=== PATIENT | female | born 1930 | race Caucasian/White ===

== ENCOUNTER 2018-09-15 01:20 | Observation (INO) | payer MEDICARE ==
[~2018-09-15] VITALS: Ht 160 cm; Wt 80.0 kg
[~2018-09-15 01:20] MED LIST: ASPI81EC PO; ATEN25 PO; Aspirin EC81 MG PO; CALC1.25T PO; CALCIUM CARBONATE PO; CARV6.25 PO; CLOP75 PO; CODACE30 PO; CYAN1000I IM; DOCU100 PO; FISH1000 PO; FLUN25SP; FLUO10 PO; FLUO20 PO; FLUT.05NI; GUAI600ER PO; INS70/30I SC; Isosorbide Mono60 MG PO; LEVSOD50 PO; LISI10 PO; LISI5 PO; LORA10ER PO; Lasix20 MG PO; MECL12.5 PO; METO50ER PO; MORP15ER PO; MORP30 PO; MORP30ER PO; MULVITA PO; Morphine Sulfat30 M1 PO; NAPR250 PO; NITR.4SL SL; OLOP.1OPSO OD; OMEP20ER PO; PANT40 PO; RXNITR.4 SL; SENN187 PO; SIMV5 PO; TOCO400 PO; TRAZ50 PO; VIT D3 PO; VITAMIN D3400 UNIT PO
[2018-09-15] MEDS ORDERED: ALLO300 PO (01:28)
[2018-09-15] MEDS ORDERED: CETI5 PO (01:30)
[2018-09-15] MEDS ORDERED: Capsaicin60 GM TOP (01:30)
[2018-09-15] MEDS ORDERED: Flonase 0.05% N16 GM (01:34)
[2018-09-15] MEDS ORDERED: GABA300 PO (01:37)
[2018-09-15] MEDS ORDERED: GUAI200 PO (01:38)
[2018-09-15] MEDS ORDERED: NOVOLIN 70100 UNIT/2 SC (01:40)
[2018-09-15] MEDS ORDERED: Hair, Skin & N1 EACH PO (01:46)
[2018-09-15] MEDS ORDERED: NITR.4SL SL (01:46)
[2018-09-15] MEDS ORDERED: ONDA4ODT MM (01:48)
[2018-09-15] MEDS ORDERED: PANT20 PO (01:48)
[2018-09-15] MEDS ORDERED: TRAZ50 PO (01:49)
[2018-09-15] MEDS ORDERED: Ropinirole HCl0.5 MG PO (01:49)
[2018-09-15] MEDS ORDERED: VALSARTAN40 MG PO (01:50)
[2018-09-15] MEDS ORDERED: Percocet 5-3251 EACH PO (01:51)
[2018-09-15 01:55] LABS: BASOPHILS ABSOLUTE AUTO 0.04 K/mm3 (0.00-0.23); BASOPHILS PERCENT AUTO 1 % (0-2); EOSINOPHILS ABSOLUTE AUTO 0.34 K/mm3 (0.00-0.68); EOSINOPHILS PERCENT AUTO 4 % (0-6); Hematocrit 38.9 % (33.0-51.0); Hemoglobin 12.5 g/dL (11.5-16.0); IMMATURE GRAN ABSOLUTE AUTO 0.01 K/mm3 (0.00-0.10); IMMATURE GRAN PERCENT AUTO 0 % (0-1); LYMPHOCYTES ABSOLUTE AUTO 2.92 K/mm3 (0.84-5.20); LYMPHOCYTES PERCENT AUTO 37 % (21-46); MONOCYTES ABSOLUTE AUTO 0.67 K/mm3 (0.16-1.47); MONOCYTES PERCENT AUTO 9 % (4-13); Mean Corpuscular HGB 32.1 pg (26.0-34.0); Mean Corpuscular HGB Conc 32.1 g/dL (31.5-36.5); Mean Corpuscular Volume 100 fL (80-100); NEUTROPHILS ABSOLUTE AUTO 3.92 K/mm3 (1.96-9.15); NEUTROPHILS PERCENT AUTO 50 % (41-73); Platelet Count 162 K/mm3 (150-400); RDW Coefficient Variation 13.5 % (11.7-14.2)
[2018-09-15 02:16] LABS: Alanine Aminotransfer (ALT/SGP 21 U/L (12-78); Albumin, Blood 3.3 g/dL (3.4-5.0); Alk Phos 79 U/L (50-136); Anion Gap 8 mmol/L (6-16); Aspartate Aminotrans (AST/SGOT 15 U/L (12-37); Blood Urea Nitrogen 53 mg/dL (8-24); Bun/Creatinine Ratio 24.7 (12.0-20.0); CO2, Blood 23 mmol/L (21-32); Chloride, Blood 106 mmol/L (98-108); Creatinine, Blood 2.15 mg/dL (0.40-1.00); Globulin, Blood 3.3 g/dL (2.2-4.0); Glomerular Filtration Rate 23 (60-); Glucose, Blood 160 mg/dL (70-99); Potassium, Blood 4.8 mmol/L (3.5-5.5); Sodium, Blood 137 mmol/L (136-145); Total Protein, Blood 6.6 g/dL (6.4-8.2); Troponin I <0.015 ng/mL (0.000-0.040)
[2018-09-15 02:27] LABS: Source, Urine Clean Catch
[2018-09-15 02:42] LABS: Bilirubin, Urine Neg (Neg); Blood, Urine Neg (Neg); Glucose Qualitative, Urine Neg (Neg); Ketones, Urine Neg (Neg); Leukocyte Esterase, Urine 1+ (Neg); Nitrite, Urine Neg (Neg); Protein, Urine Neg (Neg); Specific Gravity, Urine 1.015 (1.003-1.022); Urobilinogen, Urine NORM (Normal)
[2018-09-15 02:44] LABS: Appearance, Urine Clear (Clear); Color, Urine Yellow (P-Yellow)
[2018-09-15 02:48] LABS: Amorphous Light (0-Heavy); Bacteria Few /hpf; Red Blood Cells, Urine 0-2 /hpf (0-2); Squamous Epithelial Cells Rare /hpf (Few); White Blood Cells, Urine 0-2 /hpf (0-5)
--- NOTE | 2018-09-15 05:27 | NUR ---
ASSUMED CARE/SHIFT SUMMARY REPORT TAKEN FROM ED RN VANESSA. PT TO UNIT ON STRETCHER AND WAS ABLE TO STAND AND TRANSFER SELF TO HOSP BED. PT HAS BRIGHT AFFECT AND ANSWERS QUESTIONS APPRORIATELY. RESP EVEN UNLBAORED ON RA W/ SATS >92%. DENIES PAIN. DENIES SOB. PT REPORTS FEELS WEAK AND "NOT HERSELF". HR LOW AND MONITORED VIA TELE. PT REPORTS HAS BEEN LOW FOR "ABOUT A WEEK". DENIES CP. PT USES 4WW AT BASLINE. NS INFUSING IN PIV AT 75ML/HR. CALL LIGHT IS IN REACH.
[2018-09-15 10:22] LABS: Hematocrit 39.1 % (33.0-51.0); Hemoglobin 12.2 g/dL (11.5-16.0); Mean Corpuscular HGB 31.3 pg (26.0-34.0); Mean Corpuscular HGB Conc 31.2 g/dL (31.5-36.5); Mean Corpuscular Volume 100 fL (80-100); Mean Platelet Volume 9.8 fL (9.1-12.4); Platelet Count 143 K/mm3 (150-400); RDW Coefficient Variation 13.8 % (11.7-14.2); RDW Standard Deviation 50.4 fL (35.1-46.3); White Blood Cell Count 7.56 K/mm3 (4.00-11.30)
[2018-09-15 10:40] LABS: Albumin, Blood 3.2 g/dL (3.4-5.0); Bilirubin, Total 0.9 mg/dL (0.1-1.0); Bun/Creatinine Ratio 26.3 (12.0-20.0); Calcium, Blood 7.9 mg/dL (8.5-10.1); Creatinine, Blood 1.94 mg/dL (0.40-1.00); Globulin, Blood 3.2 g/dL (2.2-4.0); Potassium, Blood 5.1 mmol/L (3.5-5.5); Total Protein, Blood 6.4 g/dL (6.4-8.2)
[2018-09-15 10:41] LABS: CPK Creatine Kinase 35 U/L (26-193); Troponin I <0.015 ng/mL (0.000-0.040)
--- NOTE | 2018-09-15 11:29 | NUR ---
Echocardiogram completed.
--- NOTE | 2018-09-15 14:34 | NUR ---
PT REPORTING ACHING PAIN IN LOWER BACK 10/10, REQUESTING PAIN MEDICATIONS. GOT PT UP IN RECLINER, PT STATES PAIN NOT RELEIVED BY REPOSITIONING AND RESTING. NOTIFIED DR DEVLIN, NEW ORDERS ENTERED. HEATING PAD AND TYLENOL ADMINISTERED. WILL CONTINUE TO MONITOR.
--- NOTE | 2018-09-15 15:19 | NUR ---
THIS RN TO ROOM TO DO A PAIN REASSESSMENT, PT REPORTS CHEST PRESSURE, 8/10 IN CENTER OF CHEST. VSS. NOTIFIED DR DEVLIN, NEW ORDER FOR EKG, AND HE WILL BE UP TO REVEIW. WILL CONTINUE TO MONITOR.
--- NOTE | 2018-09-15 17:19 | NUR ---
ZOSYN AND SOLUMEDROL SCANNED AND GIVEN AT 1639. UNABLE TO SUBMIT AND SAVE DUE TO COMPUTER ISSUES. WILL MANUALLY ENTER ONCE THESE ARE NOT LOCKED OUT.
--- NOTE | 2018-09-15 17:21 | NUR ---
SHIFT SUMMARY PT A&Ox4. CALM AND COOPERATIVE WITH CARE. PT RESTING IN BED DURING SHIFT. UP TO BSC WITH SBA. PT DENIES SOB, SPO2 >92% ON RA T/O SHIFT, LS DIM IN BASES. PT STATES SHE STARTED HAVING A DRY COUGH THIS AFTERNOON, RESASSESSED LS NO CHANGES NOTED. PT REPORTS LOWER BACK PAIN AND EPIHASTRIC/CHEST PAIN, MEDICATED PER EMAR AND GOT PT UP TO CHAIR AND APPLIED HEAT. PT DENIES NAUSEA, POOR APPETITE. PT HR THIS AM AT 28-38, PT NOW MID 30'S TO 40'S. EKG COMPLETED DURING SHIFT. VSS. PT CONTINUES TO DENIES DIZZINESS BUT STATES THAT SHE IS WEAK. NO OTHER ACUTE CHANGES NOTED DURING SHIFT. WILL CONTINUE TO MONITOR UNTIL REPORT GIVEN TO ONCOMING RN.
[2018-09-15 18:18] LABS: CPK Creatine Kinase 37 U/L (26-193); Troponin I <0.015 ng/mL (0.000-0.040)
--- NOTE | 2018-09-16 05:14 | NUR ---
shift summary pt resting in room comfortably at this time. no acute changes in status t/o night. pt did not sleep, reports "I can't sleep without my oxycodone". pt educated as to reasoning of no narcotics being ordered d/t low hr. pt reports understanding, asks for something to sleep for tonight if she stays another day. resp even unlabored on ra while awake, w/ sats >92%. pt uses 2L nc while sleeping at baseline. egg crate provided for pt comfort and k pad applied to back for chronic pain. pt medicated w/ tylenol for pain as well. denies other needs. pt hr remains avg of 40's at rest with jumps to 60's and 70's upon amb to rr. call light in reach.
[2018-09-16 08:30] LABS: Bun/Creatinine Ratio 30.8 (12.0-20.0); Calcium, Blood 8.4 mg/dL (8.5-10.1); Creatinine, Blood 1.3 mg/dL (0.40-1.00); Potassium, Blood 4.8 mmol/L (3.5-5.5)
--- NOTE | 2018-09-16 15:58 | NUR ---
TRANSFER NOTE REPORT GIVEN TO SAMANTHA ALONSO ON MEDICAL UNIT. PT TRANSFERED TO ROOM 338. PT A&Ox4, FORGETFUL AT TIMES. PT UP IN ROOM IND. PT DENIES SOB, CHEST PAIN, DIZZINESS/LIGHTHEADEDNESS, AND NAUSEA T/O SHIFT. TELE AFIB IN 50'S. PT REPORTS KNEE AND LOWER BACK PAIN. PT WEARS 2L O2 VIA NC WHEN ASLEEP, SPO2 >90% T/O SHIFT. VSS. NO OTHER ACUTE CHANGES NOTED DURING SHIFT.
--- NOTE | 2018-09-16 18:09 | NUR ---
SHIFT SUMMARY: PATIENT TRANSFER FROM [facility] THIS SHIFT. PT A&O; OCC FORGETFUL. NO C/O PAIN SINCE ARRIVAL ON MEDICAL. TELE IN PLACE; A-FIB @ 48-53 AFTER ARRIVAL ON MEDICAL (1623). PT USES O2 @ 2L @ NOC. PT UP c SBA. EXPECTED D/C TO HOME TOMORROW (09/17). WCTM.
--- NOTE | 2018-09-17 04:06 | NUR ---
SHIFT SUMMARY- PT. A&O, UP AND AMBULATING IN THE ROOM AND HALLS WITH SBA. C/O OCCASIONAL DRY COUGH SINCE ADMISSION. LS CLEAR, ON 2L OF 02 AT BEDTIME BUT DURING THE DAY ON RA. PT. ALSO C/O LEG PAIN, STATES IS DUE TO RESTLESS LEG. CALLED PROVIDER TO OBTAIN ORDER FOR PRN PAIN MED. ADMINISTERED OXYCODONE PER EMAR, PT. TOLERATED WELL. ASLEEP THE REST OF THE NIGHT, NO APPARENT DISTRESS NOTED. CALL LIGHT WIHTIN REACH AND SIDE RAILS UP X2. WILL CONT TO MONITOR.
[2018-09-17] MEDS ORDERED: CIPR500 PO (16:09)
--- NOTE | 2018-09-17 16:30 | NUR ---
SUMMARY/DISCHARGE PT DISCHARGED TO HOME WITH HER DAUGHTER, PT VERBALIZED UNDERSTANDING OF DISCHARGE INSTRUCTIONS REGARDING MEDS AND FOLLOW UP, WAITING FOR HER RIDE AT THIS TIME
--- NOTE | 2018-09-17 16:46 | NUR ---
SUMMARY PT TAKEN OUT SAFELY VIA WHEELCHAIR
== END 2018-09-17 16:57 | disposition home or self-care (01) ==
LOC: ER 01:20 → PCU 01:21 → MEDS 09-16 15:29
PROVIDERS: Emergency Medicine; Hospitalist; ADMIT Internal Medicine
DX: N17.9 Acute kidney failure, unspecified (principal); N39.0 Urinary tract infection, site not specified; I48.91 Unspecified atrial fibrillation; E11.9 Type 2 diabetes mellitus without complications; G25.81 Restless legs syndrome; I10 Essential (primary) hypertension; M10.9 Gout, unspecified; J96.11 Chronic respiratory failure with hypoxia; I25.10 Atherosclerotic heart disease of native coronary artery without angina pectoris; Z95.1 Presence of aortocoronary bypass graft; Z79.899 Other long term (current) drug therapy; Z79.82 Long term (current) use of aspirin; Z88.2 Allergy status to sulfonamides; Z88.5 Allergy status to narcotic agent; Z88.8 Allergy status to other drugs, medicaments and biological substances
CPT/HCPCS: 36415; 51701; 71045; 80048; 80053; 81001; 82550; 82947; 83690; 83880; 84443; 84484; 85025; 85027; 87077; 87086; 87186; 93005; 93010; 93306; 96361-59; 96372; 96374-59; 96375; 99285-25; A9270; C9113; G0378; J0461; J1650; J1815; J2405; J7030

== ENCOUNTER 2018-09-19 11:29 | Inpatient (IN) | payer MEDICARE ==
[~2018-09-19] VITALS: Ht 157.5 cm; Wt 82.0 kg
[~2018-09-19 11:29] MED LIST changes: +ALLO300 PO; +CETI5 PO; +CIPR500 PO; +Capsaicin60 GM TOP; +Flonase 0.05% N16 GM; +GABA300 PO; +GUAI200 PO; +Hair, Skin & N1 EACH PO; +NOVOLIN 70100 UNIT/2 SC; +ONDA4ODT MM; +PANT20 PO; +Percocet 5-3251 EACH PO; +Ropinirole HCl0.5 MG PO; +VALSARTAN40 MG PO
[2018-09-19 12:16] LABS: BASOPHILS ABSOLUTE AUTO 0.02 K/mm3 (0.00-0.23); BASOPHILS PERCENT AUTO 0 % (0-2); EOSINOPHILS ABSOLUTE AUTO 0.14 K/mm3 (0.00-0.68); EOSINOPHILS PERCENT AUTO 1 % (0-6); Hematocrit 35.4 % (33.0-51.0); IMMATURE GRAN ABSOLUTE AUTO 0.04 K/mm3 (0.00-0.10); IMMATURE GRAN PERCENT AUTO 0 % (0-1); LYMPHOCYTES ABSOLUTE AUTO 1.49 K/mm3 (0.84-5.20); LYMPHOCYTES PERCENT AUTO 14 % (21-46); MONOCYTES ABSOLUTE AUTO 0.73 K/mm3 (0.16-1.47); MONOCYTES PERCENT AUTO 7 % (4-13); Mean Corpuscular HGB 31.2 pg (26.0-34.0); Mean Corpuscular HGB Conc 31.1 g/dL (31.5-36.5); Mean Corpuscular Volume 100 fL (80-100); Mean Platelet Volume 10.3 fL (9.1-12.4); NEUTROPHILS PERCENT AUTO 77 % (41-73); Platelet Count 160 K/mm3 (150-400); RDW Coefficient Variation 14.1 % (11.7-14.2); RDW Standard Deviation 51.6 fL (35.1-46.3); Red Blood Cell Count 3.53 M/mm3 (3.80-5.20); White Blood Cell Count 10.52 K/mm3 (4.00-11.30)
[2018-09-19 12:47] LABS: Bun/Creatinine Ratio 11.5 (12.0-20.0); Creatinine, Blood 3.23 mg/dL (0.40-1.00); Potassium, Blood 4.8 mmol/L (3.5-5.5)
[2018-09-19 12:58] LABS: Troponin I 0.845 ng/mL (0.000-0.040)
[2018-09-19] MEDS ORDERED: Vitamin B Comple1 EA PO (14:02)
[2018-09-19] MEDS ORDERED: ACET500 PO (15:17)
[2018-09-19] MEDS ORDERED: ALBU90OI INH (15:18)
[2018-09-19] MEDS ORDERED: [UNRECOGNIZED DRUG - OTHER] TOP (15:19)
[2018-09-19] MEDS ORDERED: DOCU100 PO (15:20)
[2018-09-19] MEDS ORDERED: CETI5 PO (15:20)
[2018-09-19] MEDS ORDERED: DICLOFENAC SOD100 G1 TOP (15:21)
[2018-09-19] MEDS ORDERED: Ipratropium Bro30 ML (15:22)
[2018-09-19] MEDS ORDERED: ALLERGY EYE DRO10 M1 BOTHEYES (15:22)
[2018-09-19] MEDS ORDERED: LIDO700A20 TOP (15:23)
[2018-09-19] MEDS ORDERED: MIRALAX17 GM PO (15:24)
[2018-09-19] MEDS ORDERED: SARNA ANTI-ITC222 ML TOP (15:29)
[2018-09-19 17:10] LABS: Bun/Creatinine Ratio 11.2 (12.0-20.0); Calcium, Blood 8.2 mg/dL (8.5-10.1); Creatinine, Blood 3.47 mg/dL (0.40-1.00); Potassium, Blood 4.8 mmol/L (3.5-5.5)
[2018-09-19 20:45] LABS: Source, Urine Clean Catch
[2018-09-19 20:54] LABS: Blood, Urine 3+ (Neg); Glucose Qualitative, Urine Neg (Neg); Ketones, Urine Neg (Neg); Leukocyte Esterase, Urine 3+ (Neg); Nitrite, Urine Neg (Neg); Protein, Urine 2+ (Neg); Urobilinogen, Urine 2+ (Normal)
[2018-09-19 21:11] LABS: Appearance, Urine Cloudy (Clear); Bilirubin, Urine 2+ (Neg); Color, Urine Amber (P-Yellow)
[2018-09-19 21:12] LABS: Bacteria Many /hpf; Squamous Epithelial Cells Mod /hpf (Few); White Blood Cells, Urine TNTC /hpf (0-5)
[2018-09-20 05:16] LABS: BASOPHILS ABSOLUTE AUTO 0.04 K/mm3 (0.00-0.23); BASOPHILS PERCENT AUTO 0 % (0-2); EOSINOPHILS PERCENT AUTO 4 % (0-6); Hematocrit 34.2 % (33.0-51.0); Hemoglobin 10.6 g/dL (11.5-16.0); IMMATURE GRAN ABSOLUTE AUTO 0.02 K/mm3 (0.00-0.10); IMMATURE GRAN PERCENT AUTO 0 % (0-1); LYMPHOCYTES PERCENT AUTO 22 % (21-46); MONOCYTES ABSOLUTE AUTO 0.62 K/mm3 (0.16-1.47); MONOCYTES PERCENT AUTO 7 % (4-13); Mean Corpuscular HGB 31.2 pg (26.0-34.0); Mean Corpuscular Volume 101 fL (80-100); Mean Platelet Volume 9.6 fL (9.1-12.4); NEUTROPHILS ABSOLUTE AUTO 5.91 K/mm3 (1.96-9.15); NEUTROPHILS PERCENT AUTO 66 % (41-73); Platelet Count 151 K/mm3 (150-400); RDW Coefficient Variation 13.9 % (11.7-14.2); RDW Standard Deviation 51.5 fL (35.1-46.3); White Blood Cell Count 8.99 K/mm3 (4.00-11.30)
[2018-09-20 05:44] LABS: Bun/Creatinine Ratio 12.3 (12.0-20.0); Calcium, Blood 7.5 mg/dL (8.5-10.1); Creatinine, Blood 3.08 mg/dL (0.40-1.00)
[2018-09-20 16:22] LABS: Bun/Creatinine Ratio 13.6 (12.0-20.0); Calcium, Blood 7.9 mg/dL (8.5-10.1); Creatinine, Blood 2.87 mg/dL (0.40-1.00); Potassium, Blood 4.3 mmol/L (3.5-5.5)
[2018-09-22 05:26] LABS: BASOPHILS ABSOLUTE AUTO 0.04 K/mm3 (0.00-0.23); BASOPHILS PERCENT AUTO 1 % (0-2); EOSINOPHILS ABSOLUTE AUTO 0.32 K/mm3 (0.00-0.68); EOSINOPHILS PERCENT AUTO 5 % (0-6); Hematocrit 34.8 % (33.0-51.0); Hemoglobin 10.5 g/dL (11.5-16.0); IMMATURE GRAN ABSOLUTE AUTO 0.01 K/mm3 (0.00-0.10); IMMATURE GRAN PERCENT AUTO 0 % (0-1); LYMPHOCYTES ABSOLUTE AUTO 1.27 K/mm3 (0.84-5.20); LYMPHOCYTES PERCENT AUTO 20 % (21-46); MONOCYTES ABSOLUTE AUTO 0.51 K/mm3 (0.16-1.47); MONOCYTES PERCENT AUTO 8 % (4-13); Mean Corpuscular HGB 30.9 pg (26.0-34.0); Mean Corpuscular HGB Conc 30.2 g/dL (31.5-36.5); Mean Corpuscular Volume 102 fL (80-100); Mean Platelet Volume 9.5 fL (9.1-12.4); NEUTROPHILS PERCENT AUTO 66 % (41-73); Platelet Count 166 K/mm3 (150-400); RDW Coefficient Variation 13.8 % (11.7-14.2); RDW Standard Deviation 51.8 fL (35.1-46.3); White Blood Cell Count 6.25 K/mm3 (4.00-11.30)
[2018-09-22 05:26] LABS: Eosinophils-Raw #,Urine 0
[2018-09-22 05:32] LABS: White Blood Cells Urine 0-2 /hpf (0-5)
[2018-09-22 05:37] LABS: Creatinine, Urine Random 42.4 mg/dL (27.00-270.00)
[2018-09-22 05:39] LABS: Microalb/Creat Ratio UR, Rand 27.358 mg/g (0.000-30.000); Microalbumin, Random Urine 11.6 mg/L (0.000-20.000)
[2018-09-22 06:03] LABS: Magnesium, Blood 1.9 mg/dL (1.6-2.4)
[2018-09-22 06:04] LABS: Albumin, Blood 2.8 g/dL (3.4-5.0); Albumin/Globulin Ratio 0.9 (0.8-1.8); Bilirubin, Total 0.6 mg/dL (0.1-1.0); Bun/Creatinine Ratio 18.5 (12.0-20.0); Calcium, Blood 7.9 mg/dL (8.5-10.1); Creatinine, Blood 1.78 mg/dL (0.40-1.00); Globulin, Blood 3.1 g/dL (2.2-4.0); Potassium, Blood 4.5 mmol/L (3.5-5.5); Total Protein, Blood 5.9 g/dL (6.4-8.2)
[2018-09-23 05:22] LABS: BASOPHILS ABSOLUTE AUTO 0.03 K/mm3 (0.00-0.23); BASOPHILS PERCENT AUTO 1 % (0-2); EOSINOPHILS ABSOLUTE AUTO 0.38 K/mm3 (0.00-0.68); EOSINOPHILS PERCENT AUTO 7 % (0-6); Hemoglobin 10.6 g/dL (11.5-16.0); IMMATURE GRAN ABSOLUTE AUTO 0.01 K/mm3 (0.00-0.10); IMMATURE GRAN PERCENT AUTO 0 % (0-1); LYMPHOCYTES ABSOLUTE AUTO 1.64 K/mm3 (0.84-5.20); LYMPHOCYTES PERCENT AUTO 28 % (21-46); MONOCYTES ABSOLUTE AUTO 0.49 K/mm3 (0.16-1.47); MONOCYTES PERCENT AUTO 8 % (4-13); Mean Corpuscular HGB 31.9 pg (26.0-34.0); Mean Corpuscular HGB Conc 32.1 g/dL (31.5-36.5); Mean Platelet Volume 9.5 fL (9.1-12.4); NEUTROPHILS ABSOLUTE AUTO 3.25 K/mm3 (1.96-9.15); NEUTROPHILS PERCENT AUTO 56 % (41-73); Platelet Count 186 K/mm3 (150-400); RDW Coefficient Variation 13.7 % (11.7-14.2); RDW Standard Deviation 50.1 fL (35.1-46.3); Red Blood Cell Count 3.32 M/mm3 (3.80-5.20)
[2018-09-23 05:38] LABS: Albumin, Blood 2.8 g/dL (3.4-5.0); Anion Gap 7 mmol/L (6-16); Blood Urea Nitrogen 26 mg/dL (8-24); Bun/Creatinine Ratio 23.2 (12.0-20.0); CO2, Blood 23 mmol/L (21-32); Calcium, Blood 8.1 mg/dL (8.5-10.1); Chloride, Blood 111 mmol/L (98-108); Creatinine, Blood 1.12 mg/dL (0.40-1.00); Glomerular Filtration Rate 49 (60-); Glucose, Blood 113 mg/dL (70-99); Phosphorus, Blood 2.7 mg/dL (2.5-4.9); Potassium, Blood 4.4 mmol/L (3.5-5.5); Sodium, Blood 141 mmol/L (136-145)
[2018-09-23 05:41] LABS: Mean Corpuscular Volume 99 fL (80-100)
[2018-09-24 05:40] LABS: BASOPHILS ABSOLUTE AUTO 0.03 K/mm3 (0.00-0.23); BASOPHILS PERCENT AUTO 0 % (0-2); EOSINOPHILS ABSOLUTE AUTO 0.45 K/mm3 (0.00-0.68); EOSINOPHILS PERCENT AUTO 6 % (0-6); Hematocrit 36.2 % (33.0-51.0); Hemoglobin 11.2 g/dL (11.5-16.0); IMMATURE GRAN ABSOLUTE AUTO 0.01 K/mm3 (0.00-0.10); IMMATURE GRAN PERCENT AUTO 0 % (0-1); LYMPHOCYTES ABSOLUTE AUTO 1.92 K/mm3 (0.84-5.20); LYMPHOCYTES PERCENT AUTO 25 % (21-46); MONOCYTES ABSOLUTE AUTO 0.58 K/mm3 (0.16-1.47); MONOCYTES PERCENT AUTO 8 % (4-13); Mean Corpuscular HGB 31.3 pg (26.0-34.0); Mean Corpuscular HGB Conc 30.9 g/dL (31.5-36.5); Mean Corpuscular Volume 101 fL (80-100); Mean Platelet Volume 9.6 fL (9.1-12.4); NEUTROPHILS ABSOLUTE AUTO 4.56 K/mm3 (1.96-9.15); NEUTROPHILS PERCENT AUTO 60 % (41-73); Platelet Count 208 K/mm3 (150-400); RDW Coefficient Variation 13.9 % (11.7-14.2); RDW Standard Deviation 51.6 fL (35.1-46.3); Red Blood Cell Count 3.58 M/mm3 (3.80-5.20); White Blood Cell Count 7.55 K/mm3 (4.00-11.30)
[2018-09-24 05:59] LABS: Albumin, Blood 3.1 g/dL (3.4-5.0); Anion Gap 6 mmol/L (6-16); Blood Urea Nitrogen 19 mg/dL (8-24); Bun/Creatinine Ratio 18.8 (12.0-20.0); CO2, Blood 26 mmol/L (21-32); Calcium, Blood 8.5 mg/dL (8.5-10.1); Chloride, Blood 108 mmol/L (98-108); Creatinine, Blood 1.01 mg/dL (0.40-1.00); Glomerular Filtration Rate 55 (60-); Glucose, Blood 116 mg/dL (70-99); Phosphorus, Blood 3.1 mg/dL (2.5-4.9); Potassium, Blood 4.5 mmol/L (3.5-5.5); Sodium, Blood 140 mmol/L (136-145)
[2018-09-25 05:34] LABS: Albumin, Blood 2.8 g/dL (3.4-5.0); Anion Gap 7 mmol/L (6-16); Blood Urea Nitrogen 15 mg/dL (8-24); CO2, Blood 25 mmol/L (21-32); Calcium, Blood 8.2 mg/dL (8.5-10.1); Chloride, Blood 109 mmol/L (98-108); Creatinine, Blood 0.88 mg/dL (0.40-1.00); Glomerular Filtration Rate >60 (60-); Glucose, Blood 121 mg/dL (70-99); Phosphorus, Blood 2.9 mg/dL (2.5-4.9); Potassium, Blood 4.7 mmol/L (3.5-5.5); Sodium, Blood 141 mmol/L (136-145)
[2018-09-26 05:37] LABS: Hemoglobin 10.8 g/dL (11.5-16.0); Mean Corpuscular HGB 31.7 pg (26.0-34.0); Mean Corpuscular HGB Conc 31.8 g/dL (31.5-36.5); Mean Corpuscular Volume 100 fL (80-100); Mean Platelet Volume 9.5 fL (9.1-12.4); Platelet Count 209 K/mm3 (150-400); RDW Coefficient Variation 13.8 % (11.7-14.2); RDW Standard Deviation 49.9 fL (35.1-46.3); Red Blood Cell Count 3.41 M/mm3 (3.80-5.20); White Blood Cell Count 6.67 K/mm3 (4.00-11.30)
[2018-09-26 06:04] LABS: Anion Gap 5 mmol/L (6-16); Blood Urea Nitrogen 12 mg/dL (8-24); Bun/Creatinine Ratio 13.3 (12.0-20.0); CO2, Blood 29 mmol/L (21-32); Calcium, Blood 8.5 mg/dL (8.5-10.1); Chloride, Blood 105 mmol/L (98-108); Glomerular Filtration Rate >60 (60-); Glucose, Blood 133 mg/dL (70-99); Magnesium, Blood 1.7 mg/dL (1.6-2.4); Phosphorus, Blood 3.4 mg/dL (2.5-4.9); Potassium, Blood 4.6 mmol/L (3.5-5.5); Sodium, Blood 139 mmol/L (136-145)
[2018-09-27 05:24] LABS: Hemoglobin 10.2 g/dL (11.5-16.0)
[2018-09-27 05:39] LABS: Albumin, Blood 2.8 g/dL (3.4-5.0); Anion Gap 6 mmol/L (6-16); Blood Urea Nitrogen 13 mg/dL (8-24); Bun/Creatinine Ratio 14.2 (12.0-20.0); CO2, Blood 29 mmol/L (21-32); Calcium, Blood 8.2 mg/dL (8.5-10.1); Chloride, Blood 104 mmol/L (98-108); Creatinine, Blood 0.91 mg/dL (0.40-1.00); Glomerular Filtration Rate >60 (60-); Glucose, Blood 131 mg/dL (70-99); Magnesium, Blood 1.6 mg/dL (1.6-2.4); Phosphorus, Blood 3.5 mg/dL (2.5-4.9); Potassium, Blood 4.6 mmol/L (3.5-5.5); Sodium, Blood 139 mmol/L (136-145)
[2018-09-28 05:25] LABS: Hematocrit 34.1 % (33.0-51.0); Hemoglobin 10.7 g/dL (11.5-16.0)
[2018-09-28 05:45] LABS: Albumin, Blood 2.8 g/dL (3.4-5.0); Anion Gap 6 mmol/L (6-16); Blood Urea Nitrogen 14 mg/dL (8-24); Bun/Creatinine Ratio 15.6 (12.0-20.0); CO2, Blood 30 mmol/L (21-32); Calcium, Blood 8.4 mg/dL (8.5-10.1); Chloride, Blood 103 mmol/L (98-108); Glomerular Filtration Rate >60 (60-); Glucose, Blood 121 mg/dL (70-99); Magnesium, Blood 1.6 mg/dL (1.6-2.4); Phosphorus, Blood 3.6 mg/dL (2.5-4.9); Potassium, Blood 4.4 mmol/L (3.5-5.5); Sodium, Blood 139 mmol/L (136-145)
[2018-09-29 04:48] LABS: Hematocrit 34.8 % (33.0-51.0); Hemoglobin 11.2 g/dL (11.5-16.0)
[2018-09-29 05:11] LABS: Albumin, Blood 3.1 g/dL (3.4-5.0); Anion Gap 8 mmol/L (6-16); Blood Urea Nitrogen 13 mg/dL (8-24); Bun/Creatinine Ratio 15.2 (12.0-20.0); CO2, Blood 27 mmol/L (21-32); Calcium, Blood 8.5 mg/dL (8.5-10.1); Chloride, Blood 103 mmol/L (98-108); Creatinine, Blood 0.86 mg/dL (0.40-1.00); Glomerular Filtration Rate >60 (60-); Glucose, Blood 135 mg/dL (70-99); Magnesium, Blood 1.7 mg/dL (1.6-2.4); Phosphorus, Blood 3.4 mg/dL (2.5-4.9); Potassium, Blood 4.1 mmol/L (3.5-5.5); Sodium, Blood 138 mmol/L (136-145)
[2018-09-30 05:49] LABS: Hematocrit 35.5 % (33.0-51.0); Hemoglobin 11.3 g/dL (11.5-16.0)
[2018-09-30 06:09] LABS: Albumin, Blood 3.1 g/dL (3.4-5.0); Anion Gap 4 mmol/L (6-16); Blood Urea Nitrogen 13 mg/dL (8-24); Bun/Creatinine Ratio 14.8 (12.0-20.0); CO2, Blood 30 mmol/L (21-32); Calcium, Blood 8.7 mg/dL (8.5-10.1); Chloride, Blood 103 mmol/L (98-108); Creatinine, Blood 0.88 mg/dL (0.40-1.00); Glomerular Filtration Rate >60 (60-); Glucose, Blood 109 mg/dL (70-99); Magnesium, Blood 1.7 mg/dL (1.6-2.4); Phosphorus, Blood 3.6 mg/dL (2.5-4.9); Potassium, Blood 4.2 mmol/L (3.5-5.5); Sodium, Blood 137 mmol/L (136-145)
[2018-10-01 04:52] LABS: Hematocrit 34.6 % (33.0-51.0); Hemoglobin 10.9 g/dL (11.5-16.0)
[2018-10-01 05:16] LABS: Anion Gap 7 mmol/L (6-16); Blood Urea Nitrogen 13 mg/dL (8-24); CO2, Blood 30 mmol/L (21-32); Calcium, Blood 8.5 mg/dL (8.5-10.1); Chloride, Blood 102 mmol/L (98-108); Creatinine, Blood 0.86 mg/dL (0.40-1.00); Glomerular Filtration Rate >60 (60-); Glucose, Blood 113 mg/dL (70-99); Magnesium, Blood 1.7 mg/dL (1.6-2.4); Phosphorus, Blood 3.5 mg/dL (2.5-4.9); Potassium, Blood 4.2 mmol/L (3.5-5.5); Sodium, Blood 139 mmol/L (136-145)
[2018-10-01] MEDS ORDERED: Pedi-Dri 100,0060 GM TOP (09:39)
[2018-10-01] MEDS ORDERED: POTA10T PO (09:39)
[2018-10-01] MEDS ORDERED: DEEP SEA44 ML (09:40)
[2018-10-01] MEDS ORDERED: Florastor250 MG PO (09:40)
[2018-10-01] MEDS ORDERED: OXYGEN (16:38)
== END 2018-10-01 17:39 | disposition home health service (06) | DRG 682 ==
LOC: ER 11:29 → MEDS 14:25 → ENPENDDIS 10-01 08:14 → MEDS 10-01 17:39
PROVIDERS: Emergency Medicine; Family Medicine; Internal Medicine Nephrology; ADMIT Internal Medicine
DX: N17.0 Acute kidney failure with tubular necrosis (principal); J18.9 Pneumonia, unspecified organism; I21.A1 Myocardial infarction type 2; N39.0 Urinary tract infection, site not specified; I50.32 Chronic diastolic (congestive) heart failure; I13.0 Hypertensive heart and chronic kidney disease with heart failure and stage 1 through stage 4 chronic kidney disease, or unspecified chronic kidney disease; Z95.1 Presence of aortocoronary bypass graft; Z79.82 Long term (current) use of aspirin; Z79.4 Long term (current) use of insulin; Z87.891 Personal history of nicotine dependence; E66.9 Obesity, unspecified; Z68.32 Body mass index [BMI] 32.0-32.9, adult; I25.10 Atherosclerotic heart disease of native coronary artery without angina pectoris; I48.2 Chronic atrial fibrillation; E03.9 Hypothyroidism, unspecified; M79.7 Fibromyalgia; B96.20 Unspecified Escherichia coli [E. coli] as the cause of diseases classified elsewhere; M10.9 Gout, unspecified; G25.81 Restless legs syndrome; I27.20 Pulmonary hypertension, unspecified; D63.1 Anemia in chronic kidney disease; N18.3 Chronic kidney disease, stage 3 (moderate); E11.22 Type 2 diabetes mellitus with diabetic chronic kidney disease; E86.1 Hypovolemia; E88.09 Other disorders of plasma-protein metabolism, not elsewhere classified; R04.0 Epistaxis; E87.70 Fluid overload, unspecified
CPT/HCPCS: 36415; 71045; 71046; 76770; 78582; 80048; 80053; 80069; 81001; 82043; 82570; 82947; 83735; 83880; 84100; 84484; 85014; 85018; 85025; 85027; 87077; 87086; 87186; 87205; 93005; 93010; 94761; 96360; 96361; 97110; 97116; 97161; 97166; 97530; 97535; 99285-25; A9270; A9540; A9558; C9113; J0696; J1644; J1650; J1815; J1940; J1956; J2405; J7030

== ENCOUNTER 2018-10-09 09:56 | Inpatient (IN) | payer MEDICARE ==
[~2018-10-09] VITALS: Ht 157.5 cm; Wt 78.5 kg
[~2018-10-09 09:56] MED LIST changes: +ACET500 PO; +ALBU90OI INH; +ALLERGY EYE DRO10 M1 BOTHEYES; +DEEP SEA44 ML; +DICLOFENAC SOD100 G1 TOP; +Florastor250 MG PO; +Ipratropium Bro30 ML; +LIDO700A20 TOP; +MIRALAX17 GM PO; +OXYGEN; +POTA10T PO; +Pedi-Dri 100,0060 GM TOP; +SARNA ANTI-ITC222 ML TOP; +Vitamin B Comple1 EA PO; +[UNRECOGNIZED DRUG - OTHER] TOP
[2018-10-09 10:46] LABS: BASOPHILS ABSOLUTE AUTO 0.04 K/mm3 (0.00-0.23); BASOPHILS PERCENT AUTO 1 % (0-2); EOSINOPHILS ABSOLUTE AUTO 0.28 K/mm3 (0.00-0.68); EOSINOPHILS PERCENT AUTO 4 % (0-6); Hematocrit 34.7 % (33.0-51.0); Hemoglobin 10.8 g/dL (11.5-16.0); IMMATURE GRAN ABSOLUTE AUTO 0.02 K/mm3 (0.00-0.10); IMMATURE GRAN PERCENT AUTO 0 % (0-1); LYMPHOCYTES ABSOLUTE AUTO 1.47 K/mm3 (0.84-5.20); LYMPHOCYTES PERCENT AUTO 21 % (21-46); MONOCYTES ABSOLUTE AUTO 0.48 K/mm3 (0.16-1.47); MONOCYTES PERCENT AUTO 7 % (4-13); Mean Corpuscular HGB 30.7 pg (26.0-34.0); Mean Corpuscular HGB Conc 31.1 g/dL (31.5-36.5); Mean Corpuscular Volume 99 fL (80-100); Mean Platelet Volume 9.1 fL (9.1-12.4); NEUTROPHILS ABSOLUTE AUTO 4.62 K/mm3 (1.96-9.15); NEUTROPHILS PERCENT AUTO 67 % (41-73); Platelet Count 294 K/mm3 (150-400); RDW Coefficient Variation 13.1 % (11.7-14.2); RDW Standard Deviation 47.7 fL (35.1-46.3); Red Blood Cell Count 3.52 M/mm3 (3.80-5.20); White Blood Cell Count 6.91 K/mm3 (4.00-11.30)
[2018-10-09 10:56] LABS: Albumin, Blood 2.9 g/dL (3.4-5.0); Albumin/Globulin Ratio 0.8 (0.8-1.8); Bilirubin, Total 1.2 mg/dL (0.1-1.0); Bun/Creatinine Ratio 10.3 (12.0-20.0); Calcium, Blood 8.5 mg/dL (8.5-10.1); Creatinine, Blood 1.07 mg/dL (0.40-1.00); Globulin, Blood 3.5 g/dL (2.2-4.0); Potassium, Blood 3.8 mmol/L (3.5-5.5); Total Protein, Blood 6.4 g/dL (6.4-8.2)
[2018-10-09 11:09] LABS: Troponin I <0.015 ng/mL (0.000-0.040)
--- NOTE | 2018-10-09 18:22 | NUR ---
PT HAD A SHORT EPISODE OF CHEST PAIN THAT LASTED FOR APPROXIMATELY 1 MINUTE AND WAS RELIEVED WITHOUT ADDITIONAL INTERVENTIONS. NO CARDIAC CHANGES NOTED BY TELE R[place] O[place]O. VSS. PT ALERT AND ORIENTED, NO CHANGE IN PT'S APPEARANCE. PT REMAINS MILDLY SHORT OF BREATH SHE HAS BEEN SINCE ADMISSION. WILL ALDA TO MONITOR.
--- NOTE | 2018-10-09 19:30 | NUR ---
SHIFT SUMMARY PT HAS REPORT MILD SHORTNESS OF BREATH SINCE ARRIVAL TO THE UNIT. PT ALERT AND ORIENTED BUT FORGETFUL. SHE HAD ONE EPISODE OF CHEST PAIN WHICH RESOLVED QUICKLY. VSS. REPORT GIVEN TO TOBIN SINGH.
[2018-10-09] MEDS ORDERED: STRIVERDI RESPIM4 GM INH (22:18)
--- NOTE | 2018-10-10 02:10 | NUR ---
PROVIDER CONTACTED PT HAVING DIFFICULTY FALLING ASLEEP. REQUESTING HOME MEDICATION, TRAZODONE. DR BRUCE CONTACTED AND ORDERS TO BE ENTERED BY PHYSICIAN. WILL ADMINISTER UPON ORDER.
[2018-10-10 03:54] LABS: Hematocrit 33.4 % (33.0-51.0); Hemoglobin 10.3 g/dL (11.5-16.0); Mean Corpuscular HGB 29.9 pg (26.0-34.0); Mean Corpuscular HGB Conc 30.8 g/dL (31.5-36.5); Mean Corpuscular Volume 97 fL (80-100); Mean Platelet Volume 9.4 fL (9.1-12.4); Platelet Count 263 K/mm3 (150-400); RDW Coefficient Variation 12.9 % (11.7-14.2); RDW Standard Deviation 46.4 fL (35.1-46.3); Red Blood Cell Count 3.44 M/mm3 (3.80-5.20); White Blood Cell Count 6.16 K/mm3 (4.00-11.30)
[2018-10-10 04:17] LABS: Bun/Creatinine Ratio 12.3 (12.0-20.0); Calcium, Blood 8.4 mg/dL (8.5-10.1); Creatinine, Blood 1.22 mg/dL (0.40-1.00); Potassium, Blood 4.1 mmol/L (3.5-5.5)
--- NOTE | 2018-10-10 06:00 | NUR ---
SHIFT SUMMARY PT HAS REMAINED AOX4 THROGHOUT SHIFT WITH OCCASIONAL FORGETFULNESS UPON WAKING. VSS. PLEASANT AND COOPERATIVE WITH CARE. PT CONTINUES TO USE BEDSIDE COMMODE INDEPENDENTLY THROUGHOUT THE NIGHT. O2 SATS HAVE REMAINED >90% ON 2L VIA NASAL CANNULA; 2-3L IS BASELINE O2 USE WITH AN INCREASE TO 5L WITH AMBULATION. PT DENIES FEELING DYSPNEIC AT REST. REPORTS SLIGHT DYSPNEA WITH EXERTION THAT IS IMPROVED SINCE ARRIVAL. NO OTHER CHANGES NOTED FROM INITIAL ASSESSMENT. WILL CONTINUE TO MONITOR AND REPORT TO ONCOMING SHIFT RN. BED IN LOW POSITION, CALL LIGHT IN REACH.
--- NOTE | 2018-10-10 09:36 | NUR ---
PCU DAYSHIFT ASSUMED CARE OF PT APPROX. 0700. PT A&OX4. ASSESSMENT COMPLETED. VITAL SIGNS STABLE. PT REPORTS FEELING GOOD THIS MORNING AND THAT PAIN CURRENTLY TOLERABLE THIS MORNING. PT ABLE TO SIT UP AND HAVE BREAKFAST AND TOLEATED WELL. PT HEART RATE REMAINS A. FIB BUT CONTROLLED AT THIS TIME. PT CURRENTLY IN BED. BED IN LOW POSITION, CALL LIGHT IN REACH AND PT DENIES ANY NEEDS
--- NOTE | 2018-10-10 11:02 | NUR ---
NOTE RECIEVED ORDERS FROM PHYSCIAN ON PT STATUS CHANGE TO [facility] TELEMET[facility]. NOTIFIED OF NEW ROOM ASSIGNMENT.
--- NOTE | 2018-10-10 11:11 | NUR ---
TRANSFER NOTIFIED PT OF ROOM CHANGED. CALLED REPORT. GATHERED PT BELONGINGS. PT TO BE ESCORTED BY PEER STAFF MEMBER TO NEW ROOM VIA WHEELCHAIR. NO S/SX OF ACUTE DISRESS ON DEPARTING UNIT
--- NOTE | 2018-10-10 15:33 | NUR ---
PT TO ROOM 1130. QUITE PLEASANT TALKATIVE. DAUGHTER AND GRANDSON IN ROOM. SETTLEED TO ROOM. PT RESTING. 3L 02. B ED IN LOW POSITION, CALL LITE IN REACH, CALLSP APPROP
--- NOTE | 2018-10-10 17:00 | NUR ---
PT PLEASANT SINCE ADMIT TO FLOOR AT 1130. DENIES PAIN. HAS HAD SEVERAL FAAMILY VISITORS IN TODAY. DENIES SOB. NO OTHER CONCERNS AT THIS TIME. BED IN LOW POSITION,C ALL LITE IN REAC, CALLS APPROP
--- NOTE | 2018-10-10 18:47 | NUR ---
Attempted visit. Pt is resting with the blinds closed and the room is dark. Review of chart and past visits. Pt was seen by palliative care in mid-September. She filled out a new POLST form at that time, indicating that she would like to be full code. POLST form on file is DNR/DNI; pt does have an advance directive on file. Will need to obtain copy of full code POLST and review with family and pt again. Notes indicate a supportive daughter and grandson that are involved with care. Follow up with pt and family tomorrow if possible.
[2018-10-11 04:49] LABS: Hematocrit 34.8 % (33.0-51.0); Hemoglobin 10.7 g/dL (11.5-16.0); Mean Corpuscular HGB 30.8 pg (26.0-34.0); Mean Corpuscular HGB Conc 30.7 g/dL (31.5-36.5); Mean Platelet Volume 9.4 fL (9.1-12.4); Platelet Count 273 K/mm3 (150-400); RDW Coefficient Variation 13.2 % (11.7-14.2); RDW Standard Deviation 48.7 fL (35.1-46.3); Red Blood Cell Count 3.47 M/mm3 (3.80-5.20); White Blood Cell Count 5.84 K/mm3 (4.00-11.30)
[2018-10-11 04:54] LABS: Mean Corpuscular Volume 100 fL (80-100)
[2018-10-11 05:07] LABS: Bun/Creatinine Ratio 12.7 (12.0-20.0); Calcium, Blood 8.4 mg/dL (8.5-10.1); Creatinine, Blood 1.57 mg/dL (0.40-1.00); Potassium, Blood 4.3 mmol/L (3.5-5.5)
--- NOTE | 2018-10-11 06:50 | NUR ---
SHIFT SUMMARY PATIENT SLEPT THROUGH ENTIRE SHIFT. REQUIRED TYLENOL FOR SLIGHT PAIN THAT RESOLVED. UP AD LUCILA TO BEDSIDE COMMODE. NO ACUTE EVENTS OVERNIGHT. WILL CONTINUE TO MONITOR AND REPORT TO ONCOMING NURSE.
--- NOTE | 2018-10-11 14:13 | NUR ---
James felix are nis provided and pt . gave thanks .
--- NOTE | 2018-10-11 14:57 | NUR ---
Clinical Visit: Pt admitted for heart failure with hypoxemia and acute on chronic renal failure. History ofCHF, CKD stage 3, CAD, restless leg syndrome, diabetes, a fib, hypothyroidism, gout, hypertension. Pt is alert, oriented, very pleasant. She reports 4/10 pain at this time. She is usually around a 6/10 at home, but she states that she isn't moving around as much as she does at home, therefore the arthritis in her knees is not as irritated. She reports that she has 6/10 anxiety. She is slightly anxious about being in the hospital again, but very anxious regarding her bank account and social security right now. She closed an account and did not have the direct deposit changed, so she hasn't gotten it for a couple months. She did finally get her VA income switched over to her new account. She does not need medicine for anxiety at this time, she will let nursing know if this becomes unmanagable for her. Pt lives independently, however, she has been staying with her daughter for a week while she recovers from her last admission. She reports that she is independent with a walker, dressing herself. She is able to take showers independently at home before prior admission: She has a walk in shower at home. Since she has been at her daughter's home, she needs assistance since it is a bathtub that she requires help getting into it. Daughter has taken time off work to help care for her. Pt does not cook at home because she is forgetful and she has stopped cooking for safety reasons. Daughter states that pt has been approved for 9 hours per week for caregiving through the [place], but she doesn't know how to set this up. Also, if they could get reevaluated for more hours, this would help. Pt unable to do housework. Pt wears O2 at night only at home, but she is wearing it during the day here in the hospital. Pt has good family support. She was discharged to [facility], but they did not come see her before she had to come back to the hospital. Daughter, Rea, reports that they just started calling to set up home appointments yesterday and by then, pt was already back in the hospital. Pt has full code POLST form at home. Rea reports that she will bring it in so Phyllis can have a copy of it. It is on the refrigerator at home. Discussed interventions with Rea and pt. Pt is desiring to remain a full code. PPS: 60% KPS: 60% Pt has many comorbidities and appears to have declining kidneys. Review of diseases. Pt's EF is 60%-65% - echo on 09/15/18. None of her diseases qualify her for hospice services at this time and pt would like to remain full code. director of anesthesia services consult placed to address caregiving hours and help setting that up. Pt has no other concerns. She feels comfortable with nursing staff and reports she will let them know of her needs.
--- NOTE | 2018-10-11 18:08 | NUR ---
PATIENT A/OX4, CAN BE FORGETFUL AT TIMES. PALLIATIVE CARE AT BEDSIDE THIS SHIFT. SS REFERRAL PLACED TO ASSIST WITH MORE CAREGIVER HOURS SO THAT PATIENT CAN RETURN BACK HOME. 2LO2 TO MAINTAIN SATS, LUNGS CLEAR, DIMINISHED. VSS. ACHS BLOOD SUGARS, NO COVERAGE NEED THIS SHIFT. PATIENT IS UP INDEPENDENTLY IN ROOM, GAIT STEADY. CALM AND COOPERATIVE WITH CARE, CALLS APPROPRIATELY FOR ASSISTANCE.
--- NOTE | 2018-10-12 04:32 | NUR ---
SHIFT SUMMARY NO ACUTE CHANGES NOTED THROUGH THE NIGHT. PT REMAINS A&O X4. DENIES SOB, 2L O2 VIA NC. INDEPENDENT TO BSC. VOIDING WITH NO DIFFICULTY. CALL LIGHT IN REACH [facility]
[2018-10-12 05:24] LABS: Anion Gap 4 mmol/L (6-16); Blood Urea Nitrogen 23 mg/dL (8-24); CO2, Blood 33 mmol/L (21-32); Calcium, Blood 8.6 mg/dL (8.5-10.1); Chloride, Blood 102 mmol/L (98-108); Creatinine, Blood 1.35 mg/dL (0.40-1.00); Glomerular Filtration Rate 39 (60-); Glucose, Blood 105 mg/dL (70-99); Phosphorus, Blood 3.6 mg/dL (2.5-4.9); Potassium, Blood 4.4 mmol/L (3.5-5.5); Sodium, Blood 139 mmol/L (136-145)
--- NOTE | 2018-10-12 18:23 | NUR ---
PATIENT A/OX4, UP INDEPENDENTLY IN ROOM. CALM AND COOPERATIVE WITH CARE. VSS, 3LO2 TO MAINTAIN SATS. PAIN CONTROLLED WITH SCHEUDLED PERCOCET AND LIDOCAINE PATCH. 20G IV TO L FA WNL AND SL. FAMILY SUPPORTIVE, PATIENT HOPING TO D/C TOMORROW. A-FIB ON TELE WITH A BBB IN THE 50'S, DENIES ANY CHEST PAIN. NO ACUTE CHANGES TO REPORT THIS SHIFT.
--- NOTE | 2018-10-13 04:43 | NUR ---
SHIFT SUMMARY PT HAS SLEPT WITHOUT ISSUE OR COMPLAINT. PT CURRENTLY SLEEPING IN NO DISTRESS. CALL LIGHT IN REACH.
[2018-10-13 05:40] LABS: Bun/Creatinine Ratio 16.8 (12.0-20.0); Calcium, Blood 8.6 mg/dL (8.5-10.1); Creatinine, Blood 1.07 mg/dL (0.40-1.00); Potassium, Blood 4.2 mmol/L (3.5-5.5)
[2018-10-13] MEDS ORDERED: FLUO10 PO (10:47)
--- NOTE | 2018-10-13 13:32 | NUR ---
PT DCD HOME WITH DAUGHTER AND HOME HEALTH. ALL MEDS AND INSTRUCTIONS REVIEWED WITH PT AND DAUGHTER WHO VERBALIZED AN UNDERSTANDING. RX SENT TO [facility] PER PT REQUEST. ALL PERSONAL BELONGINGS SENT WITH PT. PT DAUGHTER CAME TO ROOM TO PICK PT UP AND BROUGHT PORTABLE O2 TANK FOR TRANSPORT. PT STABLE UPON DC.
== END 2018-10-13 13:30 | disposition home health service (06) | DRG 291 ==
LOC: ER 09:56 → PCU 12:24 → MEDS 10-10 11:24 → ENPENDDIS 10-13 09:45 → MEDS 10-13 13:30
PROVIDERS: Emergency Medicine; ADMIT Internal Medicine
DX: I13.0 Hypertensive heart and chronic kidney disease with heart failure and stage 1 through stage 4 chronic kidney disease, or unspecified chronic kidney disease (principal); I50.33 Acute on chronic diastolic (congestive) heart failure; J96.21 Acute and chronic respiratory failure with hypoxia; N18.3 Chronic kidney disease, stage 3 (moderate); E11.22 Type 2 diabetes mellitus with diabetic chronic kidney disease; I48.91 Unspecified atrial fibrillation; D63.1 Anemia in chronic kidney disease; Z51.5 Encounter for palliative care; Z99.81 Dependence on supplemental oxygen; I25.10 Atherosclerotic heart disease of native coronary artery without angina pectoris; E03.9 Hypothyroidism, unspecified; M79.7 Fibromyalgia; Z95.1 Presence of aortocoronary bypass graft; Z88.5 Allergy status to narcotic agent; Z88.2 Allergy status to sulfonamides; Z88.8 Allergy status to other drugs, medicaments and biological substances; Z79.82 Long term (current) use of aspirin; Z79.4 Long term (current) use of insulin; Z79.51 Long term (current) use of inhaled steroids; Z79.899 Other long term (current) drug therapy; Z87.891 Personal history of nicotine dependence
CPT/HCPCS: 36415; 71046; 80048; 80053; 80069; 82947; 83690; 83880; 84484; 85025; 85027; 93005; 93010; 96374; 97116; 97162; 97166; 97530; 99285-25; C1751; C9113; J1650; J1815; J1940

== ENCOUNTER 2018-10-31 19:07 | Emergency (ER) | payer OTHER, MEDICARE ==
[~2018-10-31] VITALS: Ht 157.5 cm; Wt 75.8 kg
[~2018-10-31 19:07] MED LIST changes: +STRIVERDI RESPIM4 GM INH
[2018-10-31 20:02] LABS: BASOPHILS ABSOLUTE AUTO 0.04 K/mm3 (0.00-0.23); BASOPHILS PERCENT AUTO 1 % (0-2); EOSINOPHILS PERCENT AUTO 5 % (0-6); Hematocrit 35.7 % (33.0-51.0); Hemoglobin 11.1 g/dL (11.5-16.0); IMMATURE GRAN ABSOLUTE AUTO 0.01 K/mm3 (0.00-0.10); IMMATURE GRAN PERCENT AUTO 0 % (0-1); LYMPHOCYTES ABSOLUTE AUTO 2.65 K/mm3 (0.84-5.20); LYMPHOCYTES PERCENT AUTO 33 % (21-46); MONOCYTES ABSOLUTE AUTO 0.52 K/mm3 (0.16-1.47); MONOCYTES PERCENT AUTO 7 % (4-13); Mean Corpuscular HGB Conc 31.1 g/dL (31.5-36.5); Mean Corpuscular Volume 97 fL (80-100); Mean Platelet Volume 10.1 fL (9.1-12.4); NEUTROPHILS ABSOLUTE AUTO 4.34 K/mm3 (1.96-9.15); NEUTROPHILS PERCENT AUTO 55 % (41-73); Platelet Count 241 K/mm3 (150-400); RDW Coefficient Variation 13.3 % (11.7-14.2); RDW Standard Deviation 47.4 fL (35.1-46.3); White Blood Cell Count 7.96 K/mm3 (4.00-11.30)
[2018-10-31 20:17] LABS: Albumin, Blood 3.1 g/dL (3.4-5.0); Albumin/Globulin Ratio 0.8 (0.8-1.8); Bilirubin, Total 0.6 mg/dL (0.1-1.0); Bun/Creatinine Ratio 20.3 (12.0-20.0); Calcium, Blood 8.8 mg/dL (8.5-10.1); Creatinine, Blood 1.58 mg/dL (0.40-1.00); Globulin, Blood 3.8 g/dL (2.2-4.0); Potassium, Blood 4.8 mmol/L (3.5-5.5); Total Protein, Blood 6.9 g/dL (6.4-8.2)
[2018-10-31] MEDS ORDERED: ONDA4ODT MM (21:44)
== END 2018-10-31 22:43 | disposition home or self-care (01) ==
LOC: ER 19:07
PROVIDERS: Emergency Medicine
DX: R11.2 Nausea with vomiting, unspecified (principal); N28.9 Disorder of kidney and ureter, unspecified; Z88.2 Allergy status to sulfonamides; Z88.5 Allergy status to narcotic agent; Z88.8 Allergy status to other drugs, medicaments and biological substances; Z79.899 Other long term (current) drug therapy; Z79.4 Long term (current) use of insulin; Z79.82 Long term (current) use of aspirin; I10 Essential (primary) hypertension; E11.9 Type 2 diabetes mellitus without complications
CPT/HCPCS: 80053; 83690; 85025; 99283; A9270-GY

== ENCOUNTER 2018-11-04 12:16 | Observation (INO) | payer OTHER, MEDICARE ==
[~2018-11-04] VITALS: Ht 157.5 cm; Wt 76.5 kg
[2018-11-04 13:17] LABS: BASOPHILS ABSOLUTE AUTO 0.04 K/mm3 (0.00-0.23); BASOPHILS PERCENT AUTO 1 % (0-2); EOSINOPHILS ABSOLUTE AUTO 0.39 K/mm3 (0.00-0.68); EOSINOPHILS PERCENT AUTO 5 % (0-6); Hematocrit 36.4 % (33.0-51.0); Hemoglobin 11.1 g/dL (11.5-16.0); IMMATURE GRAN ABSOLUTE AUTO 0.02 K/mm3 (0.00-0.10); IMMATURE GRAN PERCENT AUTO 0 % (0-1); LYMPHOCYTES ABSOLUTE AUTO 2.51 K/mm3 (0.84-5.20); LYMPHOCYTES PERCENT AUTO 32 % (21-46); MONOCYTES ABSOLUTE AUTO 0.46 K/mm3 (0.16-1.47); MONOCYTES PERCENT AUTO 6 % (4-13); Mean Corpuscular HGB 29.5 pg (26.0-34.0); Mean Corpuscular HGB Conc 30.5 g/dL (31.5-36.5); Mean Corpuscular Volume 97 fL (80-100); Mean Platelet Volume 9.9 fL (9.1-12.4); NEUTROPHILS ABSOLUTE AUTO 4.53 K/mm3 (1.96-9.15); NEUTROPHILS PERCENT AUTO 57 % (41-73); Platelet Count 238 K/mm3 (150-400); RDW Coefficient Variation 13.7 % (11.7-14.2); RDW Standard Deviation 49.1 fL (35.1-46.3); Red Blood Cell Count 3.76 M/mm3 (3.80-5.20); White Blood Cell Count 7.95 K/mm3 (4.00-11.30)
[2018-11-04 13:43] LABS: Albumin, Blood 3.2 g/dL (3.4-5.0); Albumin/Globulin Ratio 0.8 (0.8-1.8); Bilirubin, Total 0.7 mg/dL (0.1-1.0); Bun/Creatinine Ratio 12.9 (12.0-20.0); Calcium, Blood 8.4 mg/dL (8.5-10.1); Creatinine, Blood 3.73 mg/dL (0.40-1.00); Globulin, Blood 3.8 g/dL (2.2-4.0); Potassium, Blood 5.1 mmol/L (3.5-5.5); Troponin I 0.073 ng/mL (0.000-0.040)
[2018-11-04] MEDS ORDERED: METO25ER PO (15:25)
[2018-11-04] MEDS ORDERED: Percocet 5-3251 EACH PO (15:52)
[2018-11-04] MEDS ORDERED: Vitamin B Comple1 EA PO (15:52)
[2018-11-04] MEDS ORDERED: CETI5 PO (16:03)
[2018-11-04] MEDS ORDERED: DOCU100 PO (16:04)
[2018-11-04] MEDS ORDERED: DICLOFENAC SOD100 G1 TOP (16:05)
[2018-11-04] MEDS ORDERED: ANTI-ITCH LOTI222 ML TOP (16:06)
[2018-11-04] MEDS ORDERED: LACT PO (16:07)
[2018-11-04] MEDS ORDERED: Chest Congesti400 MG PO (16:07)
[2018-11-04] MEDS ORDERED: MENTHOL TOP (16:09)
[2018-11-04] MEDS ORDERED: CAMPHOR TOP (16:09)
[2018-11-04] MEDS ORDERED: METHYL SALICYLATE TOP (16:09)
[2018-11-05 04:15] LABS: BASOPHILS ABSOLUTE AUTO 0.04 K/mm3 (0.00-0.23); BASOPHILS PERCENT AUTO 1 % (0-2); EOSINOPHILS ABSOLUTE AUTO 0.26 K/mm3 (0.00-0.68); EOSINOPHILS PERCENT AUTO 4 % (0-6); Hematocrit 36.8 % (33.0-51.0); Hemoglobin 11.3 g/dL (11.5-16.0); IMMATURE GRAN ABSOLUTE AUTO 0.01 K/mm3 (0.00-0.10); IMMATURE GRAN PERCENT AUTO 0 % (0-1); LYMPHOCYTES ABSOLUTE AUTO 1.97 K/mm3 (0.84-5.20); LYMPHOCYTES PERCENT AUTO 30 % (21-46); MONOCYTES ABSOLUTE AUTO 0.36 K/mm3 (0.16-1.47); MONOCYTES PERCENT AUTO 6 % (4-13); Mean Corpuscular HGB 29.2 pg (26.0-34.0); Mean Corpuscular HGB Conc 30.7 g/dL (31.5-36.5); Mean Corpuscular Volume 95 fL (80-100); Mean Platelet Volume 9.9 fL (9.1-12.4); NEUTROPHILS ABSOLUTE AUTO 3.94 K/mm3 (1.96-9.15); NEUTROPHILS PERCENT AUTO 60 % (41-73); Platelet Count 230 K/mm3 (150-400); RDW Coefficient Variation 13.6 % (11.7-14.2); RDW Standard Deviation 47.6 fL (35.1-46.3); Red Blood Cell Count 3.87 M/mm3 (3.80-5.20); White Blood Cell Count 6.58 K/mm3 (4.00-11.30)
[2018-11-05 04:35] LABS: Albumin, Blood 3.1 g/dL (3.4-5.0); Albumin/Globulin Ratio 0.8 (0.8-1.8); Bilirubin, Total 0.8 mg/dL (0.1-1.0); Bun/Creatinine Ratio 15.2 (12.0-20.0); Calcium, Blood 8.3 mg/dL (8.5-10.1); Creatinine, Blood 3.16 mg/dL (0.40-1.00); Globulin, Blood 3.9 g/dL (2.2-4.0); Potassium, Blood 5.1 mmol/L (3.5-5.5)
--- NOTE | 2018-11-05 06:05 | NUR ---
PCU ADMIT / SHIFT SUMMARY PT BROUGHT TO PCU RM 06 FROM ER BY [facility] @ 2009 A MEDICAL NO TELE ADMIT. PT ABLE TO STAND AND AMBULATE TO PCU BED W/ 1 PERSON ASSIST. PT REPORTS USING CANE AT HOME BASELINE. PT A&O X4, THOUGH FORGETFUL AT TIMES. LUNG SOUNDS CLEAR, SPO2 > 90% ON 3L NC. PT INTITIALLY STATING 3L NC HOME 02 USE, THEN PT REPORTED NOT EVER USING O2 AT HOME AND THIS BEING THE FIRST TIME, THEN PT CORRECTED HERSELF SAYING SHE HAS USED OXYGEN A COUPLE OF TIMES BEFORE, TO THEN SAY AGAIN A FEW MINUTES LATER "NO, ACTUALLY I DO NORMALLY USE 3L AT HOME. MY MEMORY IS NOT WORKING RIGHT NOW, I'M SO SORRY. I DO WEAR OXYGEN AT HOME." BP ELEVATED. NS GTT X1 BAG COMPLETED. BP IMPROVED. VSS. WILL CONTINUE TO MONITOR AND PROVIDE CARE UNTIL REPORT OFF TO DAY SHIFT RN.
--- NOTE | 2018-11-05 17:50 | NUR ---
SHIFT SUMMARY PT ALERT AND ORIENTED, BUT FORGETFUL AT TIMES. VS STABLE. O2 SATS REMAIN ABOVE 90% ON 3L NC. PT DENIES ANY PAIN. PT ABLE TO TRANSFER TO BSC NEEDED TO VOID WITH SBA. PT TOLERATING PO INTAKE. LR INFUSING PER ORDERS. WILL CONTINUE TO MONITOR AND REPORT TO ONCOMING RN. CALL LIGHT IN REACH.
[2018-11-06 04:33] LABS: Bun/Creatinine Ratio 21.2 (12.0-20.0); Calcium, Blood 8.6 mg/dL (8.5-10.1); Creatinine, Blood 2.12 mg/dL (0.40-1.00); Potassium, Blood 4.8 mmol/L (3.5-5.5)
--- NOTE | 2018-11-06 06:00 | NUR ---
SHIFT SUMMARY: PT HAS RESTED PERIODICALLY THROUGHOUT THE NIGHT. ASSISTED TO COMMODE WITH STAND BY ASSIST. VSS
--- NOTE | 2018-11-06 14:21 | NUR ---
DISCHARGE NOTE PT PROVIDED DISCHARGE INSTRUCTIONS ALONG WITH HER GRANDSON. CHANGES IN MEDICATIONS EDUCATED TO PT. ALL QUESTIONS ANSWERED. PT SET UP WITH HOME HEALTH. PT TAKEN OUT BY WHEELCHAIR.
== END 2018-11-06 14:17 | disposition home health service (06) ==
LOC: ER 12:16 → ERHOLD 12:17 → PCU 18:00
PROVIDERS: Emergency Medicine; ADMIT Internal Medicine
DX: N17.9 Acute kidney failure, unspecified (principal); I13.0 Hypertensive heart and chronic kidney disease with heart failure and stage 1 through stage 4 chronic kidney disease, or unspecified chronic kidney disease; I50.32 Chronic diastolic (congestive) heart failure; N18.4 Chronic kidney disease, stage 4 (severe); D63.1 Anemia in chronic kidney disease; I48.20 Chronic atrial fibrillation, unspecified; J96.11 Chronic respiratory failure with hypoxia; I25.10 Atherosclerotic heart disease of native coronary artery without angina pectoris; E03.9 Hypothyroidism, unspecified; M10.9 Gout, unspecified; M79.7 Fibromyalgia; F03.90 Unspecified dementia, unspecified severity, without behavioral disturbance, psychotic disturbance, mood disturbance, and anxiety; E11.22 Type 2 diabetes mellitus with diabetic chronic kidney disease; E11.40 Type 2 diabetes mellitus with diabetic neuropathy, unspecified; G25.81 Restless legs syndrome; Z91.81 History of falling; Z87.891 Personal history of nicotine dependence; Z79.899 Other long term (current) drug therapy
CPT/HCPCS: 36415; 70450; 71045; 80048; 80053; 82947; 83880; 84484; 85025; 93005; 93010; 94640; 94760; 96361; 96372; 96374; 99285-25; G0378; J1650; J2405; J7030; J7120

== ENCOUNTER 2018-12-22 09:03 | Emergency (ER) | payer OTHER, MEDICARE ==
[~2018-12-22] VITALS: Ht 167.6 cm; Wt 74.8 kg
[~2018-12-22 09:03] MED LIST changes: +ANTI-ITCH LOTI222 ML TOP; +CAMPHOR TOP; +Chest Congesti400 MG PO; +LACT PO; +MENTHOL TOP; +METHYL SALICYLATE TOP; +METO25ER PO; +Prozac20 MG PO
[2018-12-22 09:52] LABS: BASOPHILS ABSOLUTE AUTO 0.06 K/mm3 (0.00-0.23); BASOPHILS PERCENT AUTO 1 % (0-2); EOSINOPHILS ABSOLUTE AUTO 0.46 K/mm3 (0.00-0.68); EOSINOPHILS PERCENT AUTO 5 % (0-6); Hematocrit 35.5 % (33.0-51.0); Hemoglobin 11.2 g/dL (11.5-16.0); IMMATURE GRAN ABSOLUTE AUTO 0.04 K/mm3 (0.00-0.10); IMMATURE GRAN PERCENT AUTO 0 % (0-1); LYMPHOCYTES ABSOLUTE AUTO 1.64 K/mm3 (0.84-5.20); LYMPHOCYTES PERCENT AUTO 17 % (21-46); MONOCYTES PERCENT AUTO 6 % (4-13); Mean Corpuscular HGB 28.6 pg (26.0-34.0); Mean Corpuscular HGB Conc 31.5 g/dL (31.5-36.5); Mean Corpuscular Volume 91 fL (80-100); Mean Platelet Volume 9.8 fL (9.1-12.4); NEUTROPHILS ABSOLUTE AUTO 7.05 K/mm3 (1.96-9.15); NEUTROPHILS PERCENT AUTO 72 % (41-73); Platelet Count 226 K/mm3 (150-400); RDW Coefficient Variation 16.2 % (11.7-14.2); Red Blood Cell Count 3.91 M/mm3 (3.80-5.20); White Blood Cell Count 9.85 K/mm3 (4.00-11.30)
[2018-12-22 09:59] LABS: Source, Urine Clean Catch
[2018-12-22 10:04] LABS: Alanine Aminotransfer (ALT/SGP 15 U/L (12-78); Albumin, Blood 3.4 g/dL (3.4-5.0); Albumin/Globulin Ratio 0.9 (0.8-1.8); Alk Phos 79 U/L (50-136); Anion Gap 8 mmol/L (6-16); Aspartate Aminotrans (AST/SGOT 26 U/L (12-37); Bilirubin, Total 1.7 mg/dL (0.1-1.0); Blood Urea Nitrogen 10 mg/dL (8-24); Bun/Creatinine Ratio 12.2 (12.0-20.0); CO2, Blood 27 mmol/L (21-32); Calcium, Blood 8.7 mg/dL (8.5-10.1); Chloride, Blood 101 mmol/L (98-108); Creatinine, Blood 0.82 mg/dL (0.40-1.00); Globulin, Blood 3.6 g/dL (2.2-4.0); Glomerular Filtration Rate >60 (60-); Glucose, Blood 153 mg/dL (70-99); Potassium, Blood 3.6 mmol/L (3.5-5.5); Sodium, Blood 136 mmol/L (136-145)
[2018-12-22 10:11] LABS: Bilirubin, Urine Neg (Neg); Blood, Urine 1+ (Neg); Glucose Qualitative, Urine Neg (Neg); Ketones, Urine Neg (Neg); Leukocyte Esterase, Urine 3+ (Neg); Nitrite, Urine Neg (Neg); Protein, Urine 3+ (Neg); Urobilinogen, Urine NORM (Normal)
[2018-12-22 10:26] LABS: Appearance, Urine Clear (Clear); Color, Urine Yellow (P-Yellow)
[2018-12-22 10:28] LABS: Bacteria Few /hpf; Squamous Epithelial Cells Mod /hpf (Few)
[2018-12-22] MEDS ORDERED: CEPH500 PO (11:43)
[2019-01-04] MEDS ORDERED: CALCA500S6 PO (21:07)
[2019-01-04] MEDS ORDERED: DONE5 PO (21:08)
[2019-01-04] MEDS ORDERED: FURO20 PO (21:09)
[2019-01-04] MEDS ORDERED: MICONAZOLE NITRATE (21:12)
[2019-01-04] MEDS ORDERED: Percocet 5-3251 EACH PO (21:13)
[2019-01-04] MEDS ORDERED: ALPR.25 PO (21:17)
[2019-01-05] MEDS ORDERED: BENZ100A PO (00:09)
== END 2018-12-22 11:59 | disposition home or self-care (01) ==
LOC: ER 09:03
PROVIDERS: Physician Assistant
DX: N39.0 Urinary tract infection, site not specified (principal); I13.0 Hypertensive heart and chronic kidney disease with heart failure and stage 1 through stage 4 chronic kidney disease, or unspecified chronic kidney disease; E11.22 Type 2 diabetes mellitus with diabetic chronic kidney disease; N18.4 Chronic kidney disease, stage 4 (severe); I50.9 Heart failure, unspecified; E03.9 Hypothyroidism, unspecified; J44.9 Chronic obstructive pulmonary disease, unspecified; I25.10 Atherosclerotic heart disease of native coronary artery without angina pectoris; Z87.01 Personal history of pneumonia (recurrent); Z87.440 Personal history of urinary (tract) infections; K21.9 Gastro-esophageal reflux disease without esophagitis; F43.10 Post-traumatic stress disorder, unspecified; Z88.2 Allergy status to sulfonamides; Z88.8 Allergy status to other drugs, medicaments and biological substances; Z88.5 Allergy status to narcotic agent; Z79.899 Other long term (current) drug therapy; Z79.82 Long term (current) use of aspirin; Z79.891 Long term (current) use of opiate analgesic
CPT/HCPCS: 36415; 74177; 80053; 81001; 83690; 85025; 87086; 93005; 93010; 99284-25; A9270-GY; Q9967

== ENCOUNTER 2019-01-10 04:17 | Inpatient (IN) | payer OTHER, MEDICARE ==
[~2019-01-10] VITALS: Ht 157.5 cm; Wt 56.6 kg
[~2019-01-10 04:17] MED LIST changes: +ALPR.25 PO; +BENZ100A PO; +CALCA500S6 PO; +CEPH500 PO; +DONE5 PO; +FURO20 PO; +MICONAZOLE NITRATE
[2019-01-10 05:04] LABS: BASOPHILS ABSOLUTE AUTO 0.04 K/mm3 (0.00-0.23); BASOPHILS PERCENT AUTO 1 % (0-2); EOSINOPHILS ABSOLUTE AUTO 0.13 K/mm3 (0.00-0.68); EOSINOPHILS PERCENT AUTO 2 % (0-6); Hematocrit 38.2 % (33.0-51.0); IMMATURE GRAN ABSOLUTE AUTO 0.02 K/mm3 (0.00-0.10); IMMATURE GRAN PERCENT AUTO 0 % (0-1); LYMPHOCYTES ABSOLUTE AUTO 1.64 K/mm3 (0.84-5.20); LYMPHOCYTES PERCENT AUTO 26 % (21-46); MONOCYTES ABSOLUTE AUTO 0.51 K/mm3 (0.16-1.47); MONOCYTES PERCENT AUTO 8 % (4-13); Mean Corpuscular HGB 28.4 pg (26.0-34.0); Mean Corpuscular HGB Conc 31.4 g/dL (31.5-36.5); Mean Corpuscular Volume 91 fL (80-100); Mean Platelet Volume 8.8 fL (9.1-12.4); NEUTROPHILS ABSOLUTE AUTO 3.87 K/mm3 (1.96-9.15); NEUTROPHILS PERCENT AUTO 62 % (41-73); Platelet Count 211 K/mm3 (150-400); RDW Coefficient Variation 16.7 % (11.7-14.2); RDW Standard Deviation 55.3 fL (35.1-46.3); Red Blood Cell Count 4.22 M/mm3 (3.80-5.20); White Blood Cell Count 6.21 K/mm3 (4.00-11.30)
[2019-01-10 05:30] LABS: Troponin I 0.043 ng/mL (0.000-0.040)
[2019-01-10] MEDS ORDERED: BUSP10 PO (05:34)
[2019-01-10 05:35] LABS: Alanine Aminotransfer (ALT/SGP 20 U/L (12-78); Albumin, Blood 3.2 g/dL (3.4-5.0); Albumin/Globulin Ratio 0.9 (0.8-1.8); Alk Phos 80 U/L (50-136); Anion Gap 7 mmol/L (6-16); Aspartate Aminotrans (AST/SGOT 36 U/L (12-37); Bilirubin, Total 1.4 mg/dL (0.1-1.0); Blood Urea Nitrogen 11 mg/dL (8-24); Bun/Creatinine Ratio 13.6 (12.0-20.0); CO2, Blood 29 mmol/L (21-32); Calcium, Blood 8.6 mg/dL (8.5-10.1); Chloride, Blood 98 mmol/L (98-108); Creatinine, Blood 0.81 mg/dL (0.40-1.00); Globulin, Blood 3.6 g/dL (2.2-4.0); Glomerular Filtration Rate >60 (60-); Glucose, Blood 97 mg/dL (70-99); Potassium, Blood 3.9 mmol/L (3.5-5.5); Sodium, Blood 134 mmol/L (136-145); Total Protein, Blood 6.8 g/dL (6.4-8.2)
[2019-01-10] MEDS ORDERED: ERGO50000 (05:38)
[2019-01-10] MEDS ORDERED: STRIVERDI RESPIM4 GM IH (05:39)
[2019-01-10 06:49] LABS: PCO2 Arterial 41.3 mmHg (35-45)
[2019-01-10 10:48] LABS: Adenovirus Not Detected (NOT DETECT); Bordetella pertussis Not Detected (NOT DETECT); Chlamydophila pneumoniae Not Detected (NOT DETECT); Coronavirus 229E Not Detected (NOT DETECT); Coronavirus HKU1 Not Detected (NOT DETECT); Coronavirus NL63 Not Detected (NOT DETECT); Coronavirus OC43 Not Detected (NOT DETECT); Human Metapneumovirus Not Detected (NOT DETECT); Human Rhinovirus/Enterovirus Not Detected (NOT DETECT); Influenza A Not Detected (NOT DETECT); Influenza A/2009-H1 Not Detected (NOT DETECT); Influenza A/H1 Not Detected (NOT DETECT); Influenza A/H3 Not Detected (NOT DETECT); Influenza B Not Detected (NOT DETECT); Mycoplasma pneumoniae Not Detected (NOT DETECT); Parainfluenza Virus 1 Not Detected (NOT DETECT); Parainfluenza Virus 2 Not Detected (NOT DETECT); Parainfluenza Virus 3 Not Detected (NOT DETECT); Parainfluenza Virus 4 Not Detected (NOT DETECT); Respiratory Syncytial Virus Detected (NOT DETECT)
--- NOTE | 2019-01-10 19:49 | NUR ---
SHIFT SUMMARY PATIENT ARRIVED FROM ER VIA GURNEY AT AROUND 0830, AWAKE AND ALERT, NEEDING TO URINATE. PATIENT TRANSFERRED SELF TO BEDSIDE COMMODE AND THEN TO UNIT HOSP BED WITH MINIMAL-ZERO ASSIST. PATIENT'S LUNG SOUNDS COARSE WITH EXP WHEEZE BILATERALLY AT ASSESSMENT, AND A NONPRODUCTIVE HACKING COUGH. PT C/O NAUSEA AND CONSTIPATION AND WAS MEDICATED PER EMAR FOR EACH. PT DENIED CHEST PAIN, BUT C/O PAIN TO LEFT UPPER ABD, DENYING NEED FOR MEDICATION. LATER PATIENT WAS MEDICATED PER EMAR FOR PAIN 10/10 AT SAME LOCATION, BUT MEDICATION RESOLVED PAIN TO 5/10, AND LATER ASSESSED AT 2/10. PATIENT DISPLAYS SOME ELEMENTS OF DEMENTIA, BUT OVERALL ALERT AND ORIENTED, INDEPENDENT AND SOMEWHAT RESTLESS IN ROOM. PATIENT'S VITAL SIGNS REMAINED STABLE WITHIN HER BASELINE, AND WAS OTHERWISE TREATED PER UNIT PROTOCOL AND MD ORDER WITHOUT ISSUE. 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 GAVE REPORT AND CARE OVER TO TAYLOR SINGH AT 1900, PATIENT ALERT IN BED WITH NO COMPLAINTS, CALL LIGHT W/IN REACH HEARING AIDS, BOTH OF WHICH ARE AT [facility]
--- NOTE | 2019-01-11 00:40 | NUR ---
pt no longer coughing, reduced o2 down to 3L still maintaing above 90%, will continue to monitor and treat
--- NOTE | 2019-01-11 07:08 | NUR ---
a+o no coughing for last few hours, 3L via oximizer, saline locked, uses bsc with assist r/hoses and skds, call light in reach, bsr shared with pt and day shift, no significant medical changes noted during shift
[2019-01-11 08:46] LABS: BASOPHILS ABSOLUTE AUTO 0.05 K/mm3 (0.00-0.23); BASOPHILS PERCENT AUTO 1 % (0-2); EOSINOPHILS ABSOLUTE AUTO 0.18 K/mm3 (0.00-0.68); EOSINOPHILS PERCENT AUTO 3 % (0-6); Hematocrit 38.7 % (33.0-51.0); Hemoglobin 12.2 g/dL (11.5-16.0); IMMATURE GRAN ABSOLUTE AUTO 0.08 K/mm3 (0.00-0.10); IMMATURE GRAN PERCENT AUTO 1 % (0-1); LYMPHOCYTES PERCENT AUTO 28 % (21-46); MONOCYTES ABSOLUTE AUTO 0.56 K/mm3 (0.16-1.47); MONOCYTES PERCENT AUTO 8 % (4-13); Mean Corpuscular HGB 27.9 pg (26.0-34.0); Mean Corpuscular HGB Conc 31.5 g/dL (31.5-36.5); Mean Corpuscular Volume 89 fL (80-100); Mean Platelet Volume 9.6 fL (9.1-12.4); NEUTROPHILS ABSOLUTE AUTO 3.98 K/mm3 (1.96-9.15); NEUTROPHILS PERCENT AUTO 59 % (41-73); Platelet Count 148 K/mm3 (150-400); RDW Coefficient Variation 16.3 % (11.7-14.2); RDW Standard Deviation 53.1 fL (35.1-46.3); Red Blood Cell Count 4.37 M/mm3 (3.80-5.20); White Blood Cell Count 6.75 K/mm3 (4.00-11.30)
[2019-01-11 08:48] LABS: Anion Gap 4 mmol/L (6-16); Blood Urea Nitrogen 13 mg/dL (8-24); CO2, Blood 29 mmol/L (21-32); Calcium, Blood 8.3 mg/dL (8.5-10.1); Chloride, Blood 100 mmol/L (98-108); Creatinine, Blood 0.87 mg/dL (0.40-1.00); Glomerular Filtration Rate >60 (60-); Glucose, Blood 101 mg/dL (70-99); Magnesium, Blood 1.5 mg/dL (1.6-2.4); Potassium, Blood 3.7 mmol/L (3.5-5.5); Sodium, Blood 133 mmol/L (136-145)
--- NOTE | 2019-01-11 10:56 | NUR ---
Spiritual care visit attempted. Upon receiving an admit referral for spiritual care, I visited patient. Patient stated that she is not up for a visit today. I will continue to remain available to patient and family.
--- NOTE | 2019-01-11 14:17 | NUR ---
Echocardiogram completed.
--- NOTE | 2019-01-11 18:49 | NUR ---
SHIFT NOTE PT HAS TOLERATED 6L O2 VIA OXYMIZER T/O THE DAY. PT ALERT BUT INTERMITTENTLY CONFUSED T/O THE DAY. TOWARDS THE END OF SHIFT PT DEMANDED TO CHECK OUT AMA, PT QUITE CONFUSED DR HOUSTON SPOKE TO AND AGREES THAT PT WAS NOT LUCID ENOUGH TO MAKE THE CHOICE TO LEAVE. UPON MEDICATING PT AT 1800 PT STATED THAT SHE AGREED THAT STAYING WAS THE BEST OPTION, APPROX 30 MINUTES LATER PT NO LONGER RECALLS THAT SHE AGREED TO STAY RETURNS TO DEMANDING TO LEAVE
--- NOTE | 2019-01-11 19:30 | NUR ---
REPORT REC'D FROM YAYA SINGH. PT JUST FINISHED USING BSC. HEARD TALKING ON PHONE. PT WAS TALKING TO DAUGHTER AND SAID TO HER SHE WOULD STAY THE NIGHT AND PROBABLY LEAVE TOMORROW. WHEN I ENTERED THE ROOM, PT ASKED ABOUT GOING HOME TONIGHT. SHE WAS REMINDED OF HER INFECTION, THAT SHE WAS IN THE HOSPITAL AND WHY. ALSO TOLD HER HER DR DIDN'T THINK IT WAS A GOOD IDEA FOR HER TO GO HOME JUST YET. PT AGREED TO STAY. SHE WAS PLEASANT AND COOPERATIVE, AND APPRECIATIVE OF ME PICKING UP IN HER ROOM AND MAKING SURE SHE WAS COMFORTABLE. ASSESSMENT NOTED. IVF INFUSING TKO. REQUESTED AND WAS PROVIDED A CUP OF ROOTBEER. CALL LIGHT IN REACH.
--- NOTE | 2019-01-12 02:30 | NUR ---
PT ALLOWED TO SLEEP DURING MN VS D/T CONFUSION, DEMENTIA, ADAMENT ON LEAVING DURING DAY SHIFT AND VSS. CONT BIOX IN PLACE, SATS & HR WNL. O2 AT 7L OXY[address] DR HOUSTON'S PROGRESS NOTE REVIEWED. PT IS ON FLUID RESTRICTION, STRICT I&O'S, DAILY WEIGHTS. IMAGING SCHEDULER INFORMED WAS VETERINARIAN POULTRY. PT TRANSFERS SELF TO BSC AND USES THICK SQUARES TO WIPE WITH WHICH ABSORBS ALL THE URINE IN BSC. KVO IVF STOPPED AND IV SL'D. PO INTAKE DOCUMENTED BUT UNABLE TO ACCURATELY CHART OUTPUT, ESPECIALLY SINCE PT IS NOT COMPLIANT WITH CALLING FOR ASSISTANCE, IS INCONTINENT IN ADDITION TO USING ABSORB PADS. BATHROOM AND COMMODE CLEANED AFTER USE, GARBAGES EMPTIED AND ROOM TIDIED UP AGAIN. PT VERY PLEASANT AND APPRECIATIVE. CALL LIGHT IN REACH.
[2019-01-12 03:36] LABS: BASOPHILS ABSOLUTE AUTO 0.03 K/mm3 (0.00-0.23); BASOPHILS PERCENT AUTO 1 % (0-2); EOSINOPHILS ABSOLUTE AUTO 0.16 K/mm3 (0.00-0.68); EOSINOPHILS PERCENT AUTO 3 % (0-6); Hematocrit 33.1 % (33.0-51.0); Hemoglobin 10.4 g/dL (11.5-16.0); IMMATURE GRAN ABSOLUTE AUTO 0.01 K/mm3 (0.00-0.10); IMMATURE GRAN PERCENT AUTO 0 % (0-1); LYMPHOCYTES ABSOLUTE AUTO 1.28 K/mm3 (0.84-5.20); LYMPHOCYTES PERCENT AUTO 26 % (21-46); MONOCYTES ABSOLUTE AUTO 0.42 K/mm3 (0.16-1.47); MONOCYTES PERCENT AUTO 9 % (4-13); Mean Corpuscular HGB 28.9 pg (26.0-34.0); Mean Corpuscular HGB Conc 31.4 g/dL (31.5-36.5); Mean Platelet Volume 10.1 fL (9.1-12.4); NEUTROPHILS ABSOLUTE AUTO 3.04 K/mm3 (1.96-9.15); NEUTROPHILS PERCENT AUTO 62 % (41-73); Platelet Count 187 K/mm3 (150-400); RDW Coefficient Variation 16.3 % (11.7-14.2); RDW Standard Deviation 55.4 fL (35.1-46.3); White Blood Cell Count 4.94 K/mm3 (4.00-11.30)
[2019-01-12 03:40] LABS: Mean Corpuscular Volume 92 fL (80-100)
[2019-01-12 03:52] LABS: Anion Gap 6 mmol/L (6-16); Blood Urea Nitrogen 14 mg/dL (8-24); Bun/Creatinine Ratio 18.4 (12.0-20.0); CO2, Blood 29 mmol/L (21-32); Calcium, Blood 7.8 mg/dL (8.5-10.1); Chloride, Blood 101 mmol/L (98-108); Creatinine, Blood 0.76 mg/dL (0.40-1.00); Glomerular Filtration Rate >60 (60-); Glucose, Blood 121 mg/dL (70-99); Magnesium, Blood 1.5 mg/dL (1.6-2.4); Phosphorus, Blood 2.6 mg/dL (2.5-4.9); Potassium, Blood 3.4 mmol/L (3.5-5.5); Sodium, Blood 136 mmol/L (136-145)
--- NOTE | 2019-01-12 07:36 | NUR ---
SHIFT SUMMARY NO SIG CHANGES T/O THE SHIFT. PT SLEPT MOST OF THE NIGHT. GOT UP TO BSC MOSTLY WITHOUT ASSIST. PT IS FORGETFUL BUT ORIENTED TO SELF, HX DEMENTIA. REPORT GIVEN TO YAYA SINGH. PT DENIES ANY NEEDS AT THIS TIME. NADN. CALL LIGHT IN REACH.
--- NOTE | 2019-01-12 11:42 | NUR ---
SPO2 91% ON 4L O2 VIA NASAL CANNULA
--- NOTE | 2019-01-12 12:19 | NUR ---
DR HOUSTON UPDATED ABOUT PT'S TOLERANCE TO O2 AT 4L, STATUS CHANGE TO MEDICAL STATUS WITH TELE
--- NOTE | 2019-01-12 13:33 | NUR ---
REPORT RECEIVED FROM YAYA AT 1324. AWAITING ARRIVAL AT THIS TIME
--- NOTE | 2019-01-12 13:46 | NUR ---
PT REQUESTS NEW IV SHE STS THAT OLD IV IS "SWELING UP" THERE IS NO SIGNS OF INFILTRATION NOTED, IV IS PATENT FLUSHES AND DRAW. ADDITIONAL LINES STARTED AGAIN THIS SHIFT PER PT'S REQUEST, PT STS "THAT FEELS BETTER" THEN IMMEDIATELY STS "THAT HURTS" PT THEN FALLS ASLEEP. LFA IV IS PATENT WITH GOOD BLOOD RETURN AND FLSUH, LT HAND IV IS LEFT IN PLACE IT REMAINS PATENT
--- NOTE | 2019-01-12 14:19 | NUR ---
PT ARRIVED TO ROOM 313
--- NOTE | 2019-01-12 14:25 | NUR ---
REPORT TO CHIP SINGH ON MEDCIAL FLOOR
--- NOTE | 2019-01-12 14:27 | NUR ---
PT'S DAUGHTER CALLED AT THIS TIME
--- NOTE | 2019-01-12 18:28 | NUR ---
SHIFT SUMMARY PT ARRIVED TO ROOM AT 1419. PT ORIENTED TO ROOM AND THEN UP TO BSC WITH 1 ASSIST TO VOID. PT SLEEPING COMFORTABLY THOUGHOUT SHIFT THOUGH AT 1630 SOME VISITORS STATED THAT PT SOUNDED "WHEEZY" THIS NURSE IN TO ASSESS. PT'S 02 SAT WAS 98% AND PT WAS SLEEPING COMFORTABLY. LUNGS SOUNDED COARSE AND SLIGHTLY WHEEZY. NURSE DECIDED TO LET PT REST AT THAT TIME. VSS. PT CONTINUES TO SAT 97% ON 4L DESPITE COUGHING AT 1810. MEDICATED PER EMAR FOR COUGH. PT HAS POOR APPETITE. BED IN LOW POSITION, CALL LIGHT WITHIN REACH.
--- NOTE | 2019-01-13 07:35 | NUR ---
Patient slept fairly well overnight. She did wake up in the night once and stated she thought a drunk man was in her room. She was able to reorient and has answered orientation questions correctly. She recieved and nebulizer this AM for wheezing and this was effective.
--- NOTE | 2019-01-13 19:10 | NUR ---
SHIFT SUMMARY PT AXO, PLEASANT AND COOPERATIVE WITH CARE THOUGH FORGETFUL. BED ALARM ON FOR SAFETY.PT CONTINUES TO REQUIRE 4L OZ VIA NC, SATING 92-100%. PT MEDICATED ONCE THIS SHIFT FOR COUGH. PT NOT PRODUCING SPUTUM. A FIB ON TELE WITH BBB. IV PATENT AND SALINE LOCKED. VSS. BED IN LOW POSITION, CALL LIGHT WITHIN REACH. PT COMPLAINED OF PAIN IN R. RIB CAGE RATING 10/10. MEDICATED PER EMAR.
--- NOTE | 2019-01-14 05:15 | NUR ---
Shift Summary Patient slept intermittently overnight. No confusion or hallucinations overnight. She c/o left rib pain, and PRN percocet was effective for this. She remains on 4l with oximizer.
[2019-01-14 06:17] LABS: Magnesium, Blood 1.4 mg/dL (1.6-2.4)
[2019-01-14 06:18] LABS: Anion Gap 8 mmol/L (6-16); Blood Urea Nitrogen 11 mg/dL (8-24); Bun/Creatinine Ratio 15.2 (12.0-20.0); CO2, Blood 31 mmol/L (21-32); Calcium, Blood 8.5 mg/dL (8.5-10.1); Chloride, Blood 99 mmol/L (98-108); Creatinine, Blood 0.73 mg/dL (0.40-1.00); Glomerular Filtration Rate >60 (60-); Glucose, Blood 96 mg/dL (70-99); Potassium, Blood 3.8 mmol/L (3.5-5.5); Sodium, Blood 138 mmol/L (136-145)
--- NOTE | 2019-01-14 16:13 | NUR ---
Spiritual Care inital note: Mrs. Mack appears frail. She reports a strong tamiko and devotion to her Catholicism. She says she has strong family support and trusts God's will. That said, she also says she is not ready to and wants to "get back on my feet." She fully expects to return her her active lifestyle. I provided prayer and affirmation of God's love. No needs presented. I will remain available.
--- NOTE | 2019-01-14 18:13 | NUR ---
ALERT. CONFUSED AT THIS. LIVES AT [place]. HX OF DEMENTIA. TELE ON AND PER TECH AFIB W/BBB UNDER 100. LUNG SOUNDS COARSE IN AM TO FINE CRACKLES IN BASES IN EVENING. WAS IN TO SEE. ONE PERSON ASSIST TO BSC USING WALKER AND CUES. ON 4 LPM OXIMYZER. MOST IV ANTIBIOTICS GIVEN LATE DUE TO PATIENT C/O PAIN AT IV SITE WITH MAG RIDER SO IT WAS GIVEN SLOWLY AND DILUTED W/NACL WITH PATIENT STATING "NO PAIN".TELE ON AND PER TECH AFIB W/BBB. WCTM.
--- NOTE | 2019-01-15 05:47 | NUR ---
SHIFT SUMMARY AOX4, FORGETFUL AT TIMES. LS COARSE, SOB WITH ACTIVITY. SOME NAUSEA AT FIRST, ZOFRAN GIVEN @ 1999. PAIN AT FIRST IN STOMACH AND LEGS, PERCOCET GIVEN @ 1999. PAIN INCREASED TO 10/10 EVERYWHERE, TYLENOL GIVEN @ 0300. SBA TO BSC. COCCYX IS RED BUT NO OPEN AREAS. BED ALARM FOR SAFETY, PT DOES NOT CALL. STILL NEED SPUTUM. DROPLET PRECAUTIONS FOR RSV. TELE READS AFIB IN THE 60'S WITH BBB. 3L O2 ON THE OXYMIZER. L FA IV - SL. REFUSED NYSTATIN. CHEST CT THIS AM. POSSIBLE DC TODAY. UNSURE OF PLAN, PT IS [facility] AND [facility] RECOMMENDED.
--- NOTE | 2019-01-15 18:03 | NUR ---
ALERT. FORGETFUL.UNLABORED RESPIRATIONS. LUNGS DIM TO FINE CRACKLES IN BASES. TELE ON. OXYGEN SWITCH TO N/C WHICH SHE NORMALLY WEARS AT HOME. AMBULATORY W/WALKER IN ROOM. WCTM
--- NOTE | 2019-01-16 04:45 | NUR ---
SHIFT SUMMARY AOX4, FORGETFUL AT TIMES. LS DIM, DENIES SOB. ZOFRAN, PERCOCET, AND TRAZADONE GIVEN @ 2015. PT WAS ABLE TO SLEEP MOST OF THE NIGHT. SBA TO BSC. BUTTOCKS STILL RED BUT NO OPEN AREAS. TELE READS AFIB IN THE 60'S WITH BBB. 3L O2 VIA NC. L FA IV - SL. [facility] SINGH COMING TO ASSESS PT TODAY. 1.5L FLUID RESTRICTION. REFUSED NYSTATIN AND EYE DROPS LAST NIGHT. PT IS VERY TEARFUL ABOUT FAMILY SITUATION. PLAN IS TO DC TODAY.
[2019-01-16 05:37] LABS: Bun/Creatinine Ratio 19.4 (12.0-20.0); Calcium, Blood 8.7 mg/dL (8.5-10.1); Creatinine, Blood 1.03 mg/dL (0.40-1.00); Magnesium, Blood 1.8 mg/dL (1.6-2.4); Potassium, Blood 4.2 mmol/L (3.5-5.5)
[2019-01-16 13:27] LABS: Antinuclear Antibody Screen Negative (Negative)
[2019-01-16] MEDS ORDERED: SPIR25 PO (14:41)
--- NOTE | 2019-01-16 15:00 | NUR ---
PATIENT D/C'D BACK TO [facility] WITH HOME HEALTH. RX MEDICATIONS FAXED TO [facility] IN [place]. D/C INSTRUCTIONS AND EDUCATIONS DISCUSSED WITH PATIENT AND COPY PROVIDED. MESSAGE LEFT WITH BARAK ALFREDO'S OFFICE TO CALL PATIENT WITH FOLLOW UP APPT. PATIENT DENIES ANY FURTHER QUESTIONS OR CONCERNS.
== END 2019-01-16 15:47 | DRG 291 ==
LOC: ER 04:17 → PCU 06:17 → MEDS 06:17 → PCU 09:07 → MEDS 01-12 14:15
PROVIDERS: Emergency Medicine; Internal Medicine; Internal Medicine Critical Care Medicine; ADMIT Family Medicine
DX: I13.0 Hypertensive heart and chronic kidney disease with heart failure and stage 1 through stage 4 chronic kidney disease, or unspecified chronic kidney disease (principal); I50.33 Acute on chronic diastolic (congestive) heart failure; J96.01 Acute respiratory failure with hypoxia; J44.0 Chronic obstructive pulmonary disease with (acute) lower respiratory infection; J84.9 Interstitial pulmonary disease, unspecified; R65.10 Systemic inflammatory response syndrome (SIRS) of non-infectious origin without acute organ dysfunction; N18.4 Chronic kidney disease, stage 4 (severe); Z51.5 Encounter for palliative care; Z95.1 Presence of aortocoronary bypass graft; I25.10 Atherosclerotic heart disease of native coronary artery without angina pectoris; K21.9 Gastro-esophageal reflux disease without esophagitis; J20.6 Acute bronchitis due to rhinovirus; I48.91 Unspecified atrial fibrillation; E13.22 Other specified diabetes mellitus with diabetic chronic kidney disease; Z99.81 Dependence on supplemental oxygen; R13.10 Dysphagia, unspecified; M10.9 Gout, unspecified; E87.6 Hypokalemia; E83.42 Hypomagnesemia; E03.9 Hypothyroidism, unspecified; Z87.891 Personal history of nicotine dependence; G31.83 Neurocognitive disorder with Lewy bodies; I27.20 Pulmonary hypertension, unspecified
CPT/HCPCS: 0099U; 36415; 36600; 71045; 71046; 71250; 80048; 80053; 82803; 83605; 83735; 83880; 84100; 84145; 84484; 85025; 86038; 87040; 92610; 93005; 93010; 93308; 93321; 94640; 94660; 94760; 94762; 96365; 96375; 97110; 97162; 97165; 97530; 97535; 99285-25; A9270; J0456; J0610; J0696; J1940; J2405; J2920; J3475; J7050

== ENCOUNTER 2019-01-20 12:11 | Emergency (ER) | payer OTHER, MEDICARE ==
[~2019-01-20] VITALS: Ht 162.6 cm; Wt 63.5 kg
[~2019-01-20 12:11] MED LIST changes: +BUSP10 PO; +ERGO50000; +SPIR25 PO; +STRIVERDI RESPIM4 GM IH
== END 2019-01-20 14:30 | disposition home or self-care (01) ==
LOC: ER 12:11
DX: F32.9 Major depressive disorder, single episode, unspecified (principal); I13.0 Hypertensive heart and chronic kidney disease with heart failure and stage 1 through stage 4 chronic kidney disease, or unspecified chronic kidney disease; E11.22 Type 2 diabetes mellitus with diabetic chronic kidney disease; I50.9 Heart failure, unspecified; N18.4 Chronic kidney disease, stage 4 (severe); E03.9 Hypothyroidism, unspecified; K21.9 Gastro-esophageal reflux disease without esophagitis; I48.91 Unspecified atrial fibrillation; M10.9 Gout, unspecified; F03.90 Unspecified dementia, unspecified severity, without behavioral disturbance, psychotic disturbance, mood disturbance, and anxiety; D64.9 Anemia, unspecified; F90.9 Attention-deficit hyperactivity disorder, unspecified type; J44.9 Chronic obstructive pulmonary disease, unspecified; M79.7 Fibromyalgia; G25.81 Restless legs syndrome; I25.10 Atherosclerotic heart disease of native coronary artery without angina pectoris; Z88.2 Allergy status to sulfonamides; Z88.5 Allergy status to narcotic agent; Z88.6 Allergy status to analgesic agent; Z88.8 Allergy status to other drugs, medicaments and biological substances; Z79.82 Long term (current) use of aspirin; Z79.899 Other long term (current) drug therapy; Z87.891 Personal history of nicotine dependence
CPT/HCPCS: 99284

== ENCOUNTER 2019-02-05 15:51 | Emergency (ER) | payer OTHER, MEDICARE ==
[~2019-02-05] VITALS: Ht 154.9 cm; Wt 68.0 kg
[2019-02-05] MEDS ORDERED: ACIDOPHILUS100 M1 PO (15:58)
[2019-02-05] MEDS ORDERED: OLAN7.5 PO (16:02)
[2019-02-05] MEDS ORDERED: [UNRECOGNIZED DRUG - OTHER] BOTHEYES (16:04)
[2019-02-05] MEDS ORDERED: VITAMIN D3 PO (16:09)
[2019-02-05] MEDS ORDERED: Albuterol2.5 MG/0.5 INH (16:11)
[2019-02-05] MEDS ORDERED: Anti-Diarrheal2 MG PO (16:13)
[2019-02-05] MEDS ORDERED: NITR.4SL SL (16:14)
[2019-02-05 16:52] LABS: BASOPHILS ABSOLUTE AUTO 0.06 K/mm3 (0.00-0.23); BASOPHILS PERCENT AUTO 1 % (0-2); EOSINOPHILS ABSOLUTE AUTO 0.15 K/mm3 (0.00-0.68); EOSINOPHILS PERCENT AUTO 2 % (0-6); Hematocrit 37.9 % (33.0-51.0); IMMATURE GRAN ABSOLUTE AUTO 0.01 K/mm3 (0.00-0.10); IMMATURE GRAN PERCENT AUTO 0 % (0-1); LYMPHOCYTES ABSOLUTE AUTO 1.64 K/mm3 (0.84-5.20); LYMPHOCYTES PERCENT AUTO 23 % (21-46); MONOCYTES ABSOLUTE AUTO 0.62 K/mm3 (0.16-1.47); MONOCYTES PERCENT AUTO 9 % (4-13); Mean Corpuscular HGB 28.2 pg (26.0-34.0); Mean Corpuscular HGB Conc 31.7 g/dL (31.5-36.5); Mean Corpuscular Volume 89 fL (80-100); Mean Platelet Volume 9.6 fL (9.1-12.4); NEUTROPHILS ABSOLUTE AUTO 4.68 K/mm3 (1.96-9.15); NEUTROPHILS PERCENT AUTO 65 % (41-73); Platelet Count 256 K/mm3 (150-400); RDW Coefficient Variation 18.1 % (11.7-14.2); RDW Standard Deviation 57.4 fL (35.1-46.3); Red Blood Cell Count 4.26 M/mm3 (3.80-5.20); White Blood Cell Count 7.16 K/mm3 (4.00-11.30)
[2019-02-05 17:12] LABS: Albumin, Blood 3.1 g/dL (3.4-5.0); Albumin/Globulin Ratio 0.7 (0.8-1.8); Bilirubin, Total 1.7 mg/dL (0.1-1.0); Bun/Creatinine Ratio 18.5 (12.0-20.0); Calcium, Blood 8.9 mg/dL (8.5-10.1); Creatinine, Blood 1.08 mg/dL (0.40-1.00); Globulin, Blood 4.3 g/dL (2.2-4.0); Potassium, Blood 3.7 mmol/L (3.5-5.5); Total Protein, Blood 7.4 g/dL (6.4-8.2)
== END 2019-02-05 19:03 | disposition home or self-care (01) ==
LOC: ER 15:51
PROVIDERS: Emergency Medicine
DX: R25.1 Tremor, unspecified (principal); R60.0 Localized edema; F41.9 Anxiety disorder, unspecified; I13.0 Hypertensive heart and chronic kidney disease with heart failure and stage 1 through stage 4 chronic kidney disease, or unspecified chronic kidney disease; E11.22 Type 2 diabetes mellitus with diabetic chronic kidney disease; I50.9 Heart failure, unspecified; N18.4 Chronic kidney disease, stage 4 (severe); D63.1 Anemia in chronic kidney disease; K21.9 Gastro-esophageal reflux disease without esophagitis; E03.9 Hypothyroidism, unspecified; J44.9 Chronic obstructive pulmonary disease, unspecified; I25.10 Atherosclerotic heart disease of native coronary artery without angina pectoris; I48.91 Unspecified atrial fibrillation; Z88.2 Allergy status to sulfonamides; Z88.8 Allergy status to other drugs, medicaments and biological substances; Z88.5 Allergy status to narcotic agent; Z79.899 Other long term (current) drug therapy; Z79.51 Long term (current) use of inhaled steroids; Z79.82 Long term (current) use of aspirin; Z87.891 Personal history of nicotine dependence
CPT/HCPCS: 36415; 80053; 83880; 85025; 96374; 99283-25; J1940

== ENCOUNTER → 2019-02-11 | Outpatient (CLI) | payer MEDICARE ==
[~2019-02-11] MED LIST changes: +ACIDOPHILUS100 M1 PO; +Albuterol2.5 MG/0.5 INH; +Anti-Diarrheal2 MG PO; +Bumetanide2 MG; +OLAN7.5 PO; +STRIVERDI RESPIM4 GM; +VITAMIN D3 PO; +[UNRECOGNIZED DRUG - OTHER] BOTHEYES
[2019-02-11 12:32] LABS: Appearance, Urine Clear (Clear); Bilirubin, Urine Neg (Neg); Blood, Urine Neg (Neg); Color, Urine Yellow (P-Yellow); Glucose Qualitative, Urine Neg (Neg); Ketones, Urine Neg (Neg); Leukocyte Esterase, Urine 2+ (Neg); Nitrite, Urine Neg (Neg); Protein, Urine Neg (Neg); Specific Gravity, Urine 1.015 (1.003-1.022); Urobilinogen, Urine NORM (Normal)
[2019-02-11 12:50] LABS: Bacteria Few /hpf; Red Blood Cells, Urine 0-2 /hpf (0-2); Squamous Epithelial Cells Mod /hpf (Few)
[2019-02-11 12:51] LABS: Other Crystals Few /hpf
== END ==
LOC: LAB 11:50 → LAB SHORT 11:50
PROVIDERS: Nurse Practitioner Family
DX: N39.0 Urinary tract infection, site not specified (principal)
CPT/HCPCS: 81001

== ENCOUNTER 2019-02-21 23:22 | Emergency (ER) | payer OTHER, MEDICARE ==
[~2019-02-21] VITALS: Ht 157.5 cm; Wt 74.8 kg
[~2019-02-21 23:22] MED LIST changes: -Bumetanide2 MG; -STRIVERDI RESPIM4 GM
[2019-02-22] MEDS ORDERED: Bumetanide2 MG (00:06)
[2019-02-22] MEDS ORDERED: STRIVERDI RESPIM4 GM (00:07)
== END 2019-02-22 02:36 | disposition home or self-care (01) ==
LOC: ER 23:22
DX: R60.0 Localized edema (principal); I13.0 Hypertensive heart and chronic kidney disease with heart failure and stage 1 through stage 4 chronic kidney disease, or unspecified chronic kidney disease; N18.4 Chronic kidney disease, stage 4 (severe); I50.9 Heart failure, unspecified; E11.22 Type 2 diabetes mellitus with diabetic chronic kidney disease; K21.9 Gastro-esophageal reflux disease without esophagitis; J44.9 Chronic obstructive pulmonary disease, unspecified; I25.10 Atherosclerotic heart disease of native coronary artery without angina pectoris; I48.91 Unspecified atrial fibrillation; Z87.01 Personal history of pneumonia (recurrent); Z87.891 Personal history of nicotine dependence; Z88.2 Allergy status to sulfonamides; Z88.5 Allergy status to narcotic agent; Z88.8 Allergy status to other drugs, medicaments and biological substances; Z79.899 Other long term (current) drug therapy; Z79.82 Long term (current) use of aspirin
CPT/HCPCS: 93971; 99284-25

== ENCOUNTER 2019-04-19 11:48 | Emergency (ER) | payer OTHER ==
[~2019-04-19] VITALS: Ht 167.6 cm; Wt 72.6 kg
[~2019-04-19 11:48] MED LIST changes: +Bumetanide2 MG; +STRIVERDI RESPIM4 GM
[2019-04-19 12:17] LABS: Source, Urine Clean Catch
[2019-04-19 12:23] LABS: BASOPHILS ABSOLUTE AUTO 0.05 K/mm3 (0.00-0.23); BASOPHILS PERCENT AUTO 1 % (0-2); EOSINOPHILS ABSOLUTE AUTO 0.32 K/mm3 (0.00-0.68); EOSINOPHILS PERCENT AUTO 3 % (0-6); Hematocrit 41.6 % (33.0-51.0); Hemoglobin 12.6 g/dL (11.5-16.0); IMMATURE GRAN ABSOLUTE AUTO 0.02 K/mm3 (0.00-0.10); IMMATURE GRAN PERCENT AUTO 0 % (0-1); LYMPHOCYTES ABSOLUTE AUTO 2.07 K/mm3 (0.84-5.20); LYMPHOCYTES PERCENT AUTO 20 % (21-46); MONOCYTES ABSOLUTE AUTO 0.72 K/mm3 (0.16-1.47); MONOCYTES PERCENT AUTO 7 % (4-13); Mean Corpuscular HGB 25.5 pg (26.0-34.0); Mean Corpuscular HGB Conc 30.3 g/dL (31.5-36.5); Mean Corpuscular Volume 84 fL (80-100); Mean Platelet Volume 9.5 fL (9.1-12.4); NEUTROPHILS ABSOLUTE AUTO 7.06 K/mm3 (1.96-9.15); NEUTROPHILS PERCENT AUTO 69 % (41-73); Platelet Count 281 K/mm3 (150-400); RDW Standard Deviation 54.6 fL (35.1-46.3); Red Blood Cell Count 4.94 M/mm3 (3.80-5.20); White Blood Cell Count 10.24 K/mm3 (4.00-11.30)
[2019-04-19 12:24] LABS: Appearance, Urine Clear (Clear); Bilirubin, Urine Neg (Neg); Blood, Urine 2+ (Neg); Color, Urine Yellow (P-Yellow); Glucose Qualitative, Urine Neg (Neg); Ketones, Urine Neg (Neg); Leukocyte Esterase, Urine 2+ (Neg); Nitrite, Urine Neg (Neg); Protein, Urine Neg (Neg); Urobilinogen, Urine NORM (Normal); pH, Urine 6.5 (5.0-8.0)
[2019-04-19 12:28] LABS: Albumin/Globulin Ratio 0.6 (0.8-1.8); Bilirubin, Total 1.1 mg/dL (0.1-1.0); Calcium, Blood 9.5 mg/dL (8.5-10.1); Creatinine, Blood 1.45 mg/dL (0.40-1.00); Globulin, Blood 5.1 g/dL (2.2-4.0); Potassium, Blood 4.1 mmol/L (3.5-5.5); Total Protein, Blood 8.1 g/dL (6.4-8.2)
[2019-04-19 12:39] LABS: Bacteria Few /hpf; Squamous Epithelial Cells Few /hpf (Few)
[2019-04-19] MEDS ORDERED: Keflex500 MG PO (13:42)
== END 2019-04-19 15:08 | disposition home or self-care (01) ==
LOC: ER 11:48
PROVIDERS: Emergency Medicine
DX: E11.65 Type 2 diabetes mellitus with hyperglycemia (principal); N39.0 Urinary tract infection, site not specified; E86.0 Dehydration; E03.9 Hypothyroidism, unspecified; I50.9 Heart failure, unspecified; J44.9 Chronic obstructive pulmonary disease, unspecified; I13.0 Hypertensive heart and chronic kidney disease with heart failure and stage 1 through stage 4 chronic kidney disease, or unspecified chronic kidney disease; N18.3 Chronic kidney disease, stage 3 (moderate); Z87.891 Personal history of nicotine dependence; Z88.2 Allergy status to sulfonamides; Z79.899 Other long term (current) drug therapy
CPT/HCPCS: 36415; 80053; 81001; 85025; 87077; 87086; 87186; 96360; 99283-25; J7030

== ENCOUNTER 2019-05-05 07:50 | Emergency (ER) | payer OTHER ==
[~2019-05-05] VITALS: Ht 152.4 cm; Wt 73.0 kg
[~2019-05-05 07:50] MED LIST changes: +Keflex500 MG PO
== END 2019-05-05 09:07 | disposition home or self-care (01) ==
LOC: ER 07:50
DX: Z04.3 Encounter for examination and observation following other accident (principal); I12.9 Hypertensive chronic kidney disease with stage 1 through stage 4 chronic kidney disease, or unspecified chronic kidney disease; N18.3 Chronic kidney disease, stage 3 (moderate); E11.22 Type 2 diabetes mellitus with diabetic chronic kidney disease; J44.9 Chronic obstructive pulmonary disease, unspecified; E03.9 Hypothyroidism, unspecified; F43.10 Post-traumatic stress disorder, unspecified; W19.XXXA Unspecified fall, initial encounter
CPT/HCPCS: 99283

== ENCOUNTER → 2019-05-22 | Outpatient (CLI) | payer MEDICARE ==
[2019-05-22 15:08] LABS: Bilirubin, Urine Neg (Neg); Blood, Urine Neg (Neg); Glucose Qualitative, Urine Neg (Neg); Ketones, Urine Neg (Neg); Leukocyte Esterase, Urine Neg (Neg); Nitrite, Urine Neg (Neg); Protein, Urine Neg (Neg); Urobilinogen, Urine NORM (Normal)
[2019-05-22 15:14] LABS: Appearance, Urine Clear (Clear); Color, Urine Yellow (P-Yellow)
== END | disposition home or self-care (01) ==
LOC: LAB SHORT 14:49 → LAB 14:49
PROVIDERS: Nurse Practitioner Family
DX: N39.0 Urinary tract infection, site not specified (principal)
CPT/HCPCS: 81003

== ENCOUNTER → 2019-07-04 | Outpatient (CLI) | payer MEDICARE ==
[2019-07-04 13:17] LABS: Bilirubin, Urine Neg (Neg); Blood, Urine Neg (Neg); Glucose Qualitative, Urine Neg (Neg); Ketones, Urine Neg (Neg); Leukocyte Esterase, Urine 3+ (Neg); Nitrite, Urine Neg (Neg); Protein, Urine 1+ (Neg); Urobilinogen, Urine NORM (Normal)
[2019-07-04 13:26] LABS: Appearance, Urine Hazy (Clear); Color, Urine Yellow (P-Yellow)
[2019-07-04 13:27] LABS: Bacteria Few /hpf; Red Blood Cells, Urine 0-2 /hpf (0-2); Squamous Epithelial Cells Mod /hpf (Few); White Blood Cells, Urine 25-50 /hpf (0-5)
== END | disposition home or self-care (01) ==
LOC: LAB SHORT 12:37 → LAB 12:37
PROVIDERS: Nurse Practitioner Family
DX: N39.0 Urinary tract infection, site not specified (principal)
CPT/HCPCS: 81001; 87086